=== PATIENT | female | born 1985 | race Caucasian/White ===

== ENCOUNTER 2021-02-02 07:47 | Emergency (ER) | payer OTHER, SELFPAY ==
--- NOTE | 2021-02-02 | ECG_ITS ---
Test Reason : PALPITATIONS Blood Pressure : / mmHG Vent. Rate : 080 BPM Atrial Rate : 080 BPM P-R Int : 110 ms QRS Dur : 082 ms QT Int : 400 ms P-R-T Axes : 068 069 034 degrees QTc Int : 461 ms Sinus rhythm with short [place] Nonspecific T wave abnormality Prolonged QT Abnormal ECG No previous ECGs available Referred By: Generic ED Physician Electronically Signed By:IDANIA OCASIO MD
--- NOTE | ~2021-02-02 | XR_ITS ---
EXAMINATION: XR CHEST CLINICAL INFORMATION: Palpitations. Shortness of breath. Rule out pneumonia. COMPARISON: None TECHNIQUE: 2 views of the chest were obtained. FINDINGS: No significant abnormality is noted involving the heart, lungs, mediastinum, bony thorax or soft tissues. XR/XR chest 2V IMPRESSION: Unremarkable examination.
[2021-02-02 08:10] VITALS: BP 120/78; PULSE 78; RESP 16; TEMP 37.2; O2SAT 96; BMI 27.4
--- NOTE | 2021-02-02 08:27 | ED_ITS ---
HPI - General Adult General Chief complaint: Arrhythmia/Palpitations Stated complaint: palpitations Time Seen by Provider: 02/02/21 08:12 Source: patient Mode of arrival: ambulatory Limitations: no limitations History of Present Illness HPI narrative: 35-year-old female who presents emergency department for evaluati on of palpitations. The patient states that for the past 5 days she feels her heart beating. She states that she has a constant hard heartbeat but does not feel a fast heart rate or skipped beats. She has mild associated shortness of breath and dyspnea on exertion. Chest pain, she has no pleuritic symptoms. She denies pain or swelling in her lower extremities, she has not been on any long trips recently. The patient states the symptoms have been persisting for 5 days, she states that she has anxiety but does not believe that her symptoms are secondary to her anxiety. She denies caffeine use. She states she does smoke marijuana multiple times a day for many years. Related Data Home Medications Medication Instructions Recorded Confirmed citalopram 40 mg tablet 40 mg PO DAILY 10/26/20 10/26/20 lamotrigine 150 mg tablet 75 mg PO BID 10/26/20 10/26/20 lorazepam 0.5 mg tablet mg PO 10/26/20 10/26/20 Previous Rx's Medication Instructions Recorded levothyroxine 50 mcg tablet 50 mcg PO QAM #90 tab 12/15/20 Allergies Allergy/AdvReac Type Severity Reaction Status Date / Time No Known Allergies Allergy Verified 10/26/20 09:13 Review of Systems Review of Systems: Yes all other systems are reviewed and are negative [facility] Past Medical History [facility] Narrative: Patient has a history of hypothyroidism, depression, anxiety, bipolar disorder, PTSD. She denies tobacco and alcohol use. She smokes marijuana multiple times a day for many years. Source: unable to obtain Surgical History No pertinent past surgical history Family History Family History Father Prostate cancer Mother Lung cancer Brother In good health Sister In good health Cervical disc disease Social History Social History Alcohol intake: never Smoking Status: Never smoker Advance Directives: Yes Advance Directives Information Provided: No Advance Directives on File: No Physical Exam Vital Signs: Vital Signs: Last Vital Signs Temp 99 F 02/02/21 08:10 Pulse 78 02/02/21 08:10 Resp 16 02/02/21 08:10 BP 120/78 02/02/21 08:10 Pulse Ox 96 02/02/21 08:10 Body Mass Index 27.4 Const: General: cooperative and healthy appearing Orientation/consciousness: oriented to person and oriented to place Limitations: no limitations HENMT: Head: Yes normal to inspection, Yes normocephalic and Yes atraumatic Ears: external ears normal General nose exam: Normal external nose present Face and sinus: Yes normal facial exam Mouth: Normal oral and palatal mucosa present Throat: Yes posterior oropharynx normal Eyes: Periorbital: periorbital findings normal Eyelids: Yes eyelids normal Conjunctivae: conjunctivae normal Sclerae: sclerae normal Corneas: corneas normal Pupils: Equal, round and reactive pupils present Direct Ophthalmoscopy: normal light reflex Neck: Neck: Yes full ROM, Yes no lymphadenopathy, Yes no meningeal signs, Yes trachea midline and Yes supple Chest: Chest palpation & inspection: normal inspection of the chest and normal palpation of entire chest wall Resp: Effort & Inspection: normal respiratory effort and able to speak in complete sentences Auscultation: clear to auscultation bilaterally Cardio: Rate: regular rate Rhythm: regular rhythm Heart sounds: S1 normal heart sound present, S2 normal heart sound present and no murmurs GI: Inspection: Yes normal to inspection Palpation (GI): Soft to palpation, nontender, no guarding, not rigid and No hepatosplenomegaly present : General: Yes no CVA tenderness Back/Spine/Pelvis: Back: no CVA tenderness Cervical Spine: normal cervical lordosis Thoracic/Lumbar Spine: thoracic and lumbar spine normal to inspection Skin: Lesions: no lesions Rashes: no rashes Wounds: no wounds Neuro: General: oriented to person, oriented to place and no meningeal signs Cranial nerves: Yes CN's II-XII intact bilaterally and Yes Equal, round and reactive pupils present Cognition (Neuro): normal cognition Motor exam (neuro): 5/5 motor strength present throughout Extrem: General: Yes normal to inspection and Yes full ROM Psych: Appearance: well kempt Mental Status: mental status grossly normal Speech and movement: Normal speech and movement present Affect: normal affect Attitude: cooperative Thought process: Normal thought process present Thought content: Normal thought content present Course Course Course Narrative: 35-year-old female who presents emergency department for evaluation of palpitations. She describes the symptoms as a constant, hard, perceivable heartbeat. She has associated dyspnea on exertion and shortness of breath but no pleuritic chest pain. Her examination revealed normal vital signs with no tachycardia and normal O2 saturation. Her exam was otherwise unremarkable. I ordered a CBC, CMP, troponin, D-dimer and chest x-ray. Patient does not want any medications at this time. 1010: Patient's laboratory evaluation was unremarkable with nondetectable troponin, non elevated D-dimer. Chest x-ray was unremarkable. Twelve EKG revealed no acute abnormalities. At this time I do not have a clear etiology for the patient's palpitations and shortness of breath I did discuss this with her. I did discuss the possibility that they may be related to anxiety. The patient was given verbal and printed instructions on palpitations and discharged home. She was advised to return to the emergency department if her symptoms get worse or if she develops any new symptoms that are concerning to her. Medical Decision Making Lab Data Result diagrams: 02/02/21 08:45 02/02/21 08:45 Labs: Lab Results 02/02/21 02/02/21 02/02/21 Range/Units 08:45 08:45 08:45 WBC 8.7 (4.8-10.8) X10*3/uL RBC 4.71 (4.20-5.50) X10*6/uL Hgb 14.1 (12.0-16.0) g/dl Hct 41.7 (37-47) % MCV 88.5 (80-98) fL MCH 29.9 (27.0-33.0) pg MCHC 33.8 (31.0-35.0) g/dl RDW 11.9 (11.0-16.0) % Plt Count 313 (160-400) X10*3/uL MPV 9.7 (9.4-12.3) fL Immature Gran % (Auto) 0.3 (0.0-0.4) % Neut % (Auto) 67.5 (45-73) % Lymph % (Auto) 24.3 (20-40) % [place] % (Auto) 5.6 (2-11) % Eos % (Auto) 1.7 (0-4) % Baso % (Auto) 0.6 (0-2) % Lymph # (Auto) 2.1 (1.2-4.9) X10*3/uL [place] # (Auto) 0.5 (0.1-1.2) X10*3/uL Eos # (Auto) 0.2 (0.0-0.4) X10*3/uL Baso # (Auto) 0.1 (0.0-0.2) X10*3/uL Abs Immat Gran (auto) 0.03 (0.00-0.03) X10*3/uL Absolute Neuts (auto) 5.9 (2.0-8.3) X10*3/uL Absolute Nucleated RBC 0.000 (0.0-0.012) X10*3/uL Nucleated RBC % (auto) 0.0 (0.0-0.2) /100WBC D-Dimer NG/ML Sodium 140 (135-145) mmol/L Potassium 3.9 (3.3-5.1) mmol/L Chloride 108 (96-108) mmol/L Carbon Dioxide 24 (22-29) mmol/L Anion Gap 12 (12-20) BUN 9 (9-16) mg/dL Creatinine 0.68 (0.5-1.4) mg/dL Estim Creat Clear Calc 109.6 Estimated GFR > 60 Random Glucose 95 (60-115) mg/dL Calcium 9.4 (8.4-10.2) mg/dL Total Bilirubin 0.4 (0.0-1.0) mg/dL AST 15 (5-31) U/L ALT 11 (0-31) U/L Alkaline Phosphatase 100 (39-117) U/L Troponin I High Sens < 3.5 (<3.5-17.0) ng/L Total Protein 6.8 (6.5-8.0) g/dL Albumin 4.4 (3.5-5.0) g/dL 02/02/21 Range/Units 08:45 WBC (4.8-10.8) X10*3/uL RBC (4.20-5.50) X10*6/uL Hgb (12.0-16.0) g/dl Hct (37-47) % MCV (80-98) fL MCH (27.0-33.0) pg MCHC (31.0-35.0) g/dl RDW (11.0-16.0) % Plt Count (160-400) X10*3/uL MPV (9.4-12.3) fL Immature Gran % (Auto) (0.0-0.4) % Neut % (Auto) (45-73) % Lymph % (Auto) (20-40) % [place] % (Auto) (2-11) % Eos % (Auto) (0-4) % Baso % (Auto) (0-2) % Lymph # (Auto) (1.2-4.9) X10*3/uL [place] # (Auto) (0.1-1.2) X10*3/uL Eos # (Auto) (0.0-0.4) X10*3/uL Baso # (Auto) (0.0-0.2) X10*3/uL Abs Immat Gran (auto) (0.00-0.03) X10*3/uL Absolute Neuts (auto) (2.0-8.3) X10*3/uL Absolute Nucleated RBC (0.0-0.012) X10*3/uL Nucleated RBC % (auto) (0.0-0.2) /100WBC D-Dimer < 200 NG/ML Sodium (135-145) mmol/L Potassium (3.3-5.1) mmol/L Chloride (96-108) mmol/L Carbon Dioxide (22-29) mmol/L Anion Gap (12-20) BUN (9-16) mg/dL Creatinine (0.5-1.4) mg/dL Estim Creat Clear Calc Estimated GFR Random Glucose (60-115) mg/dL Calcium (8.4-10.2) mg/dL Total Bilirubin (0.0-1.0) mg/dL AST (5-31) U/L ALT (0-31) U/L Alkaline Phosphatase (39-117) U/L Troponin I High Sens (<3.5-17.0) ng/L Total Protein (6.5-8.0) g/dL Albumin (3.5-5.0) g/dL ECG Data Attestation: I personally reviewed and interpreted this ECG as follows: Interpretation: 0800: Normal sinus rhythm with a rate of 80, normal UT, QRS and QTC intervals, inverted T-wave in lead V1 and V3, no ST segment elevation or depression, no PACs or PVCs, no old EKG for comparison. Discharge Plan Discharge Clinical Impression: Palpitation, Acute dyspnea Patient Disposition: Home, Self-Care Instructions: Heart Palpitations (ED) Additional Instructions: Your laboratory evaluation was normal including a nondetectable troponin and non elevated D-dimer. Your chest x-ray was normal with no clear cause for your shortness of breath or shortness of breath when exerting herself. Your 12 EKG was normal. Follow-up with your doctor in 2 days. Please return to the emergency department if your symptoms get worse or if you develop any symptoms that are concerning to you. Prescriptions: No Action levothyroxine 50 mcg tablet 50 mcg PO QAM Qty: 90 RF: 2 lorazepam 0.5 mg tablet PO RF: 0 lamotrigine 150 mg tablet 75 mg PO BID RF: 0 citalopram 40 mg tablet 40 mg PO DAILY RF: 0
[2021-02-02 08:54] LABS: MANUAL DIFF FLAG NO
[2021-02-02 08:56] LABS: Basophils Absolute Auto 0.1 X10*3/uL (0.0-0.2); Basophils Percent Auto 0.6 % (0-2); Eosinophils Absolute Auto 0.2 X10*3/uL (0.0-0.4); Eosinophils Percent Auto 1.7 % (0-4); Hematocrit 41.7 % (37-47); Hemoglobin 14.1 g/dl (12.0-16.0); Imm Gran Abs Auto 0.03 X10*3/uL (0.00-0.03); Imm Gran Pct Auto 0.3 % (0.0-0.4); Lymphocytes Absolute Auto 2.1 X10*3/uL (1.2-4.9); Lymphocytes Percent Auto 24.3 % (20-40); Mean Corpuscular HGB Conc 33.8 g/dl (31.0-35.0); Mean Corpuscular Hemoglobin 29.9 pg (27.0-33.0); Mean Corpuscular Volume 88.5 fL (80-98); Mean Platelet Volume 9.7 fL (9.4-12.3); Monocytes Absolute Auto 0.5 X10*3/uL (0.1-1.2); Monocytes Percent Auto 5.6 % (2-11); Neutrophils Absolute Auto 5.9 X10*3/uL (2.0-8.3); Neutrophils Percent Auto 67.5 % (45-73); Platelet Count 313 X10*3/uL (160-400); Red Blood Count 4.71 X10*6/uL (4.20-5.50); Red Cell Distribution Width 11.9 % (11.0-16.0); White Blood Count 8.7 X10*3/uL (4.8-10.8)
[2021-02-02 09:06] LABS: D Dimer < 200 NG/ML
[2021-02-02 09:26] LABS: Alanine Aminotransferase 11 U/L (0-31); Albumin Level 4.4 g/dL (3.5-5.0); Alkaline Phosphatase 100 U/L (39-117); Anion Gap 12 (12-20); Aspartate Amino Transferase 15 U/L (5-31); Bilirubin Total 0.4 mg/dL (0.0-1.0); Blood Urea Nitrogen 9 mg/dL (9-16); Calcium 9.4 mg/dL (8.4-10.2); Carbon Dioxide 24 mmol/L (22-29); Chloride 108 mmol/L (96-108); Creatinine Clr Calc Pharmacy 109.6; Estimated Glomerular Filt Rate > 60; Glucose Random 95 mg/dL (60-115); Potassium 3.9 mmol/L (3.3-5.1); Sodium 140 mmol/L (135-145); Total Protein 6.8 g/dL (6.5-8.0)
[2021-02-02 09:29] LABS: Troponin-I High Sensitivity < 3.5 ng/L (<3.5-17.0)
== END 2021-02-02 10:27 | disposition home or self-care (01) ==
PROVIDERS: Emergency Provider Emergency Medicine Emergency Medical Services; PCP Physician Assistant
DX: R00.2 Palpitations (principal); R06.00 Dyspnea, unspecified; Z79.899 Other long term (current) drug therapy
CPT/HCPCS: 36415; 71046; 80053; 84484; 85025; 85379; 93005; 99283

== ENCOUNTER 2021-03-10 09:45 | Outpatient (REF) | payer OTHER, SELFPAY ==
[2021-03-17 07:32] LABS: HPV 16 RNA NOT DETECTED (NOT DETECTED); HPV mRNA E6/E7 rflx Detected (Not Detected)
== END 2021-03-10 09:46 | disposition home or self-care (01) ==
LOC: HO.LAB 09:45
PROVIDERS: PCP Physician Assistant; Referring Provider Physician Assistant; Visit Provider Advanced Practice Midwife
DX: Z01.419 Encounter for gynecological examination (general) (routine) without abnormal findings (principal); Z11.51 Encounter for screening for human papillomavirus (HPV)
CPT/HCPCS: 87624; 87625; 88142

== ENCOUNTER 2021-04-05 13:40 | Outpatient (REF) | payer OTHER, SELFPAY | END 2021-04-05 13:41 | disposition home or self-care (01) | LOC: HO.LAB 13:40 | PROVIDERS: PCP Physician Assistant; Visit Provider Obstetrics & Gynecology | DX: R87.613 High grade squamous intraepithelial lesion on cytologic smear of cervix (HGSIL) (principal) | CPT/HCPCS: 57454; 88305; 88342; 88360 ==

== ENCOUNTER → 2021-04-12 15:14 | Outpatient (BNVA) | payer OTHER, SELFPAY | PROVIDERS: PCP Physician Assistant; Visit Provider Obstetrics & Gynecology | DX: R87.613 High grade squamous intraepithelial lesion on cytologic smear of cervix (HGSIL) (principal) | CPT/HCPCS: Q3014 ==

== ENCOUNTER 2021-04-22 06:45 | Day surgery (SDC) | payer OTHER, SELFPAY ==
[2021-04-15 10:41] VITALS: BMI 25.7
[2021-04-22 07:08] VITALS: BP 115/72; PULSE 75; RESP 18; TEMP 36.6; O2SAT 99
[2021-04-22 07:10] LABS: UPreg QC Valid YES; Urine Pregnancy NEGATIVE (NEGATIVE)
[2021-04-22 07:15] VITALS: BMI 25.8
--- NOTE | 2021-04-22 08:20 | P.CONAN_ITS ---
HPI - Anesthesia Eval Consult details Narrative: 35 year old female patient here for LEEP PMFSH Active Problems Active Problems: All Active Problems (Updated 04/15/21 @ 10:37 by Kenyatta Chowdhury) Annual physical exam (Acute) Hypothyroidism (Acute) PTSD (post-traumatic stress disorder) (Acute) MDD (major depressive disorder) (Acute) Bipolar 2 disorder (Acute) Screening for diabetes mellitus (DM) (Acute) Encounter for annual routine gynecological examination (Acute) HSIL (high grade squamous intraepithelial lesion) on Pap smear of cervix (Acute) Past Medical History Medical History Anxiety and depression Family History Family History Father Prostate cancer Mother Lung cancer Brother In good health Sister In good health Cervical disc disease Family history of problems with anesthesia: No Surgical History Surgical History No pertinent past surgical history History of Problems with Anesthesia: No (Nitrous oxide) Social History Social History Alcohol intake: never Patient Tobacco Use Status: Never used Tobacco Use of substances other than those prescribed or required for medical reasons: Yes Substance Use Type: Marijuana Substance Use Frequency: Daily Have you been hit, kicked, punched, or otherwise hurt by someone within the past year? If so, by whom?: No Are you DNR?: No Advance Directives: No Advance Directives Information Provided: No Advance Directives on File: No Patient : No FDLMP: 04/10/2021 : No Poor oral hygiene: No Gender identity: female Meds Allergies Allergy/AdvReac Type Severity Reaction Status Date / Time No Known Allergies Allergy Verified 04/22/21 07:31 Home Medications Medication Instructions Recorded Confirmed Last Taken Type lamotrigine 150 mg tablet 75 mg PO BID 10/26/20 04/15/21 04/22/21 04:00 History lorazepam 0.5 mg tablet 0.5 mg PO DAILY PRN 10/26/20 04/15/21 04/22/21 04:00 History sertraline 25 mg PO DAILY 04/15/21 04/15/21 04/22/21 04:00 History Exam Exam Date and Time: April 22, 2021 0820 Height,Weight and Vital Signs: Height 5 ft 3 in Weight 66.224 kg Last Vital Signs Temp 97.8 F 04/22/21 07:08 Pulse 75 04/22/21 07:08 Resp 18 04/22/21 07:08 BP 115/72 04/22/21 07:08 Pulse Ox 99 04/22/21 07:08 Pertinent Lab Results Pertinent Lab Results: Laboratory Tests 04/22/21 06:55 Urine Test NEGATIVE Airway Mallampati Class: I TM Dist: >3cm Neck ROM: Full Heart: RRR Lungs: CTAB Assessment and Plan Assessment Anesthesia Assessment: Anesthesia Plan Discussed and Chart Reviewed Final Anesthetic Review NPO: Yes ASA Class: II Final Preanesthetic Review: No Changes in Pt Med Stat, Meds/Allgs Chart Revie sun, Consent Obtained/Reviewed and Anes Risks/Benef Reviewed Patient Risk: Low Procedure Risk: Low Assessment/Block/Sedation in SS: Assess/Block/Sedation-SS Anesthetic Plan Anesthetic Plan: GA Disposition: Standard PACU
[2021-04-22] MEDS: Lactated Ringers 1,000 ML 100 ML IVCONT (08:36)
[2021-04-22 09:48] VITALS: BP 98/61; PULSE 58; RESP 16; TEMP 36.2; O2SAT 98
[2021-04-22 09:53] VITALS: BP 100/62; PULSE 62; RESP 17; O2SAT 100
[2021-04-22 10:03] VITALS: BP 108/69; PULSE 79; RESP 17; O2SAT 97
[2021-04-22 10:18] VITALS: BP 108/71; PULSE 66; RESP 17; TEMP 36.4; O2SAT 99
--- NOTE | 2021-04-22 10:20 | W.PM.OPN ---
Operative Note Operative Note Date of Service: 04/22/21 Narrative: Preoperative Diagnosis: HSIL pap smear Postoperative Diagnosis: HSIL pap smear Procedure performed: Loop electrosurgical excision procedure Anesthesia: general Estimated blood loss: 10cc Complications: None Disposition: PACU Ms. Gibson is a 35 year old G0 with recent HSIL pap smear, negative MARGARITA on colposcopic biopsies. She was counseled regarding the options for management, including diagnostic excisional procedure and continued surveillance with repeat pap smear in one year. She has been undergoing colposcopy for the last few years for HPV+ pap smears and requested an excisional procedure. Surgical Risks: The patient was informed of the risks and benefits of the LEEP procedure. Risks included but were not limited to bleeding, infection, injury to the vulva, vagina, or cervix, uterine perforation, and increased risk of labor in a future . The patient expressed understanding of the risks involved, all questions were answered, and the patient consented to the procedure. The patient was taken to the procedure room where a time out was performed to confirm correct patient and correct procedure. General anesthesia was established. The patient was positioned on the operating table in the dorsal lithotomy position with the legs supported using stirrups. All pressure points were padded and a warm blanket was placed to maintain control of core body temperature. The patient was prepped and draped in the usual sterile fashion. The bladder was emptied. A bivalve speculum was inserted into the vagina and the cervix was visualized. Local anesthesia with 1% lidocaine was injected for a total of 10cc circumferentially starting at 12 o'clock. Lugol's iodine was applied to the cervix with non-staining areas being noted circumferentially. The large regular loop electrode was used to excise the cervical sample using the mixed cautery starting at the 9 o'clock position superiorly and extending laterally to 3 o'clock. A second pass was made starting at 12 o'clock and extending inferiorly to 6 o'clock. The gross specimen was removed and sent to pathology. Endocervical curettage was completed using the kevorkian curette and also sent to pathology. Ball electrocautery was used to obtain adequate hemostasis. Monsel's solution was then applied to maintain hemostasis. Good hemostasis was confirmed. The bivalve speculum was removed from the vagina. At the completion of the procedure, all needle, sponge, and instrument counts were noted to be correct x2. Patient tolerated the procedure well and was transferred to the recovery room in stable condition.
== END 2021-04-22 11:05 | disposition home or self-care (01) ==
PROVIDERS: Internal Medicine; PCP Physician Assistant; Visit Provider Obstetrics & Gynecology
PROC: 0UBC7ZZ Excision of Cervix, Via Natural or Artificial Opening (ICD-10-PCS; CPT 57522; principal; 2021-04-22 08:30)
DX: D06.9 Carcinoma in situ of cervix, unspecified (principal); F41.8 Other specified anxiety disorders; F12.90 Cannabis use, unspecified, uncomplicated; Z79.899 Other long term (current) drug therapy
CPT/HCPCS: 57522; 81025; 88305; 88307; J1100; J2250; J2405; J3010

== ENCOUNTER 2021-04-25 08:41 | Outpatient (REF) | payer OTHER, SELFPAY ==
[2021-04-25 09:42] LABS: Hematocrit 43.2 % (37-47); Hemoglobin 14.3 g/dl (12.0-16.0); Mean Corpuscular HGB Conc 33.1 g/dl (31.0-35.0); Mean Corpuscular Hemoglobin 30.2 pg (27.0-33.0); Mean Corpuscular Volume 91.3 fL (80-98); Mean Platelet Volume 10.4 fL (9.4-12.3); Platelet Count 282 X10*3/uL (160-400); Red Blood Count 4.73 X10*6/uL (4.20-5.50); Red Cell Distribution Width 11.9 % (11.0-16.0); White Blood Count 11.2 X10*3/uL (4.8-10.8)
[2021-04-25 10:26] LABS: TSH reflex Free T4 0.58 uIU/mL (0.32-4.0)
[2021-04-25 10:28] LABS: Alanine Aminotransferase 13 U/L (0-31); Albumin Level 4.6 g/dL (3.5-5.0); Alkaline Phosphatase 97 U/L (39-117); Anion Gap 9 (12-20); Aspartate Amino Transferase 16 U/L (5-31); Bilirubin Total 0.4 mg/dL (0.0-1.0); Blood Urea Nitrogen 10 mg/dL (9-16); Calcium 9.7 mg/dL (8.4-10.2); Carbon Dioxide 28 mmol/L (22-29); Chloride 106 mmol/L (96-108); Cholesterol 249 mg/dL; Estimated Glomerular Filt Rate > 60; Glucose Fasting 90 mg/dL (60-99); HDL Cholesterol 50 mg/dL; LDL Cholesterol Calculated 173 mg/dl; Potassium 4.4 mmol/L (3.3-5.1); Sodium 139 mmol/L (135-145); Triglycerides 134 mg/dL
== END 2021-04-25 08:42 | disposition home or self-care (01) ==
LOC: HO.LAB 08:41
PROVIDERS: PCP Physician Assistant; Visit Provider Physician Assistant
DX: Z13.1 Encounter for screening for diabetes mellitus (principal); Z13.220 Encounter for screening for lipoid disorders; I10 Essential (primary) hypertension; E03.9 Hypothyroidism, unspecified
CPT/HCPCS: 36415; 80053; 80061; 84443; 85027

== ENCOUNTER → 2021-05-06 11:35 | Outpatient (BNVA) | payer OTHER, SELFPAY | PROVIDERS: Visit Provider Obstetrics & Gynecology | DX: D06.9 Carcinoma in situ of cervix, unspecified (principal) | CPT/HCPCS: Q3014 ==

== ENCOUNTER 2021-10-26 10:47 | Outpatient (REF) | payer OTHER, SELFPAY ==
[2021-10-26 11:33] LABS: Hematocrit 43.3 % (37.0-47.0); Hemoglobin 14.4 g/dl (12.0-16.0); Mean Corpuscular HGB Conc 33.3 g/dl (31.0-35.0); Mean Corpuscular Hemoglobin 30.3 pg (27.0-33.0); Mean Platelet Volume 10.2 fL (9.4-12.3); Platelet Count 317 X10*3/uL (160-400); Red Blood Count 4.76 X10*6/uL (4.20-5.50); Red Cell Distribution Width 12.2 % (11.0-16.0); White Blood Count 9.7 X10*3/uL (4.8-10.8)
[2021-10-26 12:02] LABS: Alanine Aminotransferase 10 U/L (0-31); Albumin Level 4.5 g/dL (3.5-5.0); Alkaline Phosphatase 99 U/L (39-117); Anion Gap 11 (12-20); Aspartate Amino Transferase 15 U/L (5-31); Bilirubin Total 0.5 mg/dL (0.0-1.0); Blood Urea Nitrogen 7 mg/dL (9-16); Calcium 9.6 mg/dL (8.4-10.2); Carbon Dioxide 24 mmol/L (22-29); Chloride 107 mmol/L (96-108); Cholesterol 256 mg/dL; Estimated Average Glucose 94 mg/dL; Estimated Glomerular Filt Rate > 60; Glucose Fasting 86 mg/dL (60-99); HDL Cholesterol 43 mg/dL; Hemoglobin A1c % 4.9 %; LDL Cholesterol Calculated 188 mg/dl; Potassium 4.6 mmol/L (3.3-5.1); Sodium 137 mmol/L (135-145); Total Protein 7.1 g/dL (6.5-8.0); Triglycerides 126 mg/dL
[2021-10-26 12:24] LABS: TSH reflex Free T4 1.57 uIU/mL (0.32-4.0)
== END 2021-10-26 10:48 | disposition home or self-care (01) ==
LOC: HO.LAB 10:47
PROVIDERS: PCP Physician Assistant; Visit Provider Physician Assistant
DX: E78.9 Disorder of lipoprotein metabolism, unspecified (principal); E03.9 Hypothyroidism, unspecified; Z13.1 Encounter for screening for diabetes mellitus
CPT/HCPCS: 36415; 80053; 80061; 83036; 84443; 85027

== ENCOUNTER 2022-03-13 07:50 | Outpatient (REF) | payer OTHER, SELFPAY ==
[2022-03-13 17:51] LABS: CT PCR NOT DETECTED (Not Detect.); NG PCR NOT DETECTED (Not Detect.)
[2022-03-14 13:15] LABS: BV Int Neg Control Negative (Negative); BV Int Pos Control Positive (Positive)
[2022-03-16 18:31] LABS: HPV mRNA E6/E7 rflx Not Detected (Not Detected)
== END 2022-03-13 07:51 | disposition home or self-care (01) ==
LOC: HO.LAB 07:50
PROVIDERS: PCP Physician Assistant; Visit Provider Advanced Practice Midwife
DX: Z01.411 Encounter for gynecological examination (general) (routine) with abnormal findings (principal); Z11.51 Encounter for screening for human papillomavirus (HPV); R10.2 Pelvic and perineal pain; N92.6 Irregular menstruation, unspecified; D06.9 Carcinoma in situ of cervix, unspecified; Z20.2 Contact with and (suspected) exposure to infections with a predominantly sexual mode of transmission
CPT/HCPCS: 87480; 87491; 87510; 87591; 87624; 87660; 88142

== ENCOUNTER 2022-04-05 11:09 | Outpatient (REF) | payer OTHER, SELFPAY ==
[2022-04-05 11:47] LABS: Hematocrit 43.4 % (37.0-47.0); Hemoglobin 14.5 g/dl (12.0-16.0); Mean Corpuscular HGB Conc 33.4 g/dl (31.0-35.0); Mean Corpuscular Hemoglobin 30.3 pg (27.0-33.0); Mean Corpuscular Volume 90.8 fL (80.0-98.0); Mean Platelet Volume 10.1 fL (9.4-12.3); Platelet Count 333 X10*3/uL (160-400); Red Blood Count 4.78 X10*6/uL (4.20-5.50); Red Cell Distribution Width 11.9 % (11.0-16.0); White Blood Count 12.3 X10*3/uL (4.8-10.8)
[2022-04-05 12:33] LABS: Alanine Aminotransferase 12 U/L (0-31); Albumin Level 4.8 g/dL (3.5-5.0); Alkaline Phosphatase 103 U/L (39-117); Anion Gap 17 (12-20); Aspartate Amino Transferase 18 U/L (5-31); Bilirubin Total 0.4 mg/dL (0.0-1.0); Blood Urea Nitrogen 8 mg/dL (9-16); Calcium 9.8 mg/dL (8.4-10.2); Carbon Dioxide 21 mmol/L (22-29); Chloride 107 mmol/L (96-108); Cholesterol 255 mg/dL; Estimated Glomerular Filt Rate > 60; Glucose Fasting 94 mg/dL (60-99); HDL Cholesterol 54 mg/dL; LDL Cholesterol Calculated 181 mg/dl; Potassium 4.7 mmol/L (3.3-5.1); Sodium 140 mmol/L (135-145); Total Protein 7.5 g/dL (6.5-8.0); Triglycerides 100 mg/dL
[2022-04-05 12:35] LABS: TSH reflex Free T4 1.92 uIU/mL (0.32-4.0)
== END 2022-04-05 11:10 | disposition home or self-care (01) ==
LOC: HO.LAB 11:09
PROVIDERS: Visit Provider Physician Assistant
DX: E03.9 Hypothyroidism, unspecified (principal); I10 Essential (primary) hypertension; E78.9 Disorder of lipoprotein metabolism, unspecified; Z13.1 Encounter for screening for diabetes mellitus; Z13.220 Encounter for screening for lipoid disorders
CPT/HCPCS: 36415; 80053; 80061; 84443; 85027

== ENCOUNTER 2022-11-01 09:27 | Outpatient (REF) | payer OTHER, SELFPAY ==
[2022-11-01 09:44] LABS: Hematocrit 43.3 % (37.0-47.0); Hemoglobin 14.4 g/dl (12.0-16.0); Mean Corpuscular HGB Conc 33.3 g/dl (31.0-35.0); Mean Corpuscular Hemoglobin 30.3 pg (27.0-33.0); Mean Corpuscular Volume 91.2 fL (80.0-98.0); Mean Platelet Volume 9.9 fL (9.4-12.3); Platelet Count 351 X10*3/uL (160-400); Red Blood Count 4.75 X10*6/uL (4.20-5.50); Red Cell Distribution Width 11.9 % (11.0-16.0); White Blood Count 9.5 X10*3/uL (4.8-10.8)
[2022-11-01 10:22] LABS: Alanine Aminotransferase 13 U/L (0-31); Albumin Level 4.8 g/dL (3.5-5.0); Alkaline Phosphatase 93 U/L (39-117); Anion Gap 13 (12-20); Aspartate Amino Transferase 19 U/L (5-31); Bilirubin Total 0.4 mg/dL (0.0-1.0); Blood Urea Nitrogen 8 mg/dL (9-16); Calcium 9.7 mg/dL (8.4-10.2); Carbon Dioxide 27 mmol/L (22-29); Chloride 103 mmol/L (96-108); Cholesterol 276 mg/dL; Estimated Glomerular Filt Rate > 60; Glucose Fasting 90 mg/dL (60-99); HDL Cholesterol 60 mg/dL; LDL Cholesterol Calculated 199 mg/dl; Sodium 139 mmol/L (135-145); Total Protein 7.3 g/dL (6.5-8.0); Triglycerides 87 mg/dL
[2022-11-01 10:31] LABS: TSH reflex Free T4 1.42 uIU/mL (0.32-4.0)
== END 2022-11-01 09:28 | disposition home or self-care (01) ==
LOC: HO.LAB 09:27
PROVIDERS: PCP Physician Assistant; Visit Provider Physician Assistant
DX: E03.9 Hypothyroidism, unspecified (principal); E78.9 Disorder of lipoprotein metabolism, unspecified
CPT/HCPCS: 36415; 80053; 80061; 84443; 85027

== ENCOUNTER 2023-03-15 07:53 | Outpatient (REF) | payer OTHER, SELFPAY ==
[2023-03-22 09:23] LABS: HPV mRNA E6/E7 rflx Not Detected (Not Detected)
== END 2023-03-15 07:54 | disposition home or self-care (01) ==
LOC: HO.LNP 07:53
PROVIDERS: PCP Physician Assistant; Visit Provider Advanced Practice Midwife
DX: Z01.419 Encounter for gynecological examination (general) (routine) without abnormal findings (principal); Z11.51 Encounter for screening for human papillomavirus (HPV); D06.9 Carcinoma in situ of cervix, unspecified
CPT/HCPCS: 87624; 88142

== ENCOUNTER 2023-11-05 07:35 | Outpatient (AMB) | payer OTHER, SELFPAY ==
[2023-11-05 07:49] VITALS: BP 102/70; PULSE 78; O2SAT 99; BMI 25.3
--- NOTE | 2023-11-05 07:49 | MHC.PC.OV ---
Vital Signs 11/05/23 07:49 Height 5 ft 3 in Weight 143 lb BMI 25.3 BP 102/70 Blood Pressure Location Lt brachial Position Sitting Pulse 78 Pulse Source Pulse Oximeter Pulse Oximetry (%) 99 Oxygen Delivery Method Room Air Intake Visit Reasons: Annual Exam Intake Note: Patient here for a physical exam Rn Med Surg Required: No Accompanied by: Self / Same As Patient Allergies No Known Allergies Allergy (Verified 11/05/23 08:04) Medication List - Last Reconciled 11/05/23 by Minor Chadwick PA-C fluoxetine 10 mg PO BID fluticasone propionate 50 mcg/actuation (Flonase Allergy Relief) 1 spray intranasal DAILY 30 days lamotrigine 75 mg PO BID levothyroxine 50 mcg PO QAM simvastatin 5 mg PO BEDTIME tizanidine 2 mg PO BEDTIME 10 days Tobacco use date assessed: 11/05/23 Dental Screening Dental Screen Date: 11/05/23 Did you have a dental visit in the last 12 months?: No Did you have a dental problem in the last 6 months where you did not have access to dental care?: No Was dental information given to patient?: Patient has dentist HPI Annual Exam HPI Details Nata is a 37-year-old female here today for annual physical. ? Patient has a past medical history significant hypothyroidism, hyperlipidemia, mood disorder, PTSD, history of ulcerative colitis. Concern--> reports having some dizziness and presyncopal episode when stretching. Her blood pressure is on the low side and she does understand this. She does admit to not drinking enough fluids specially with electrolytes. She will try to increase her free fluids. .... ? Hypothyroid: Patient reports she has been feeling well has been compliant with her levothyroxine, recent TSH has been stable. .. Hyperlipidemia:? Most recent lipid panel showing elevated total cholesterol and LDL 188.? She does believe for family members do have high cholesterol this may be a familial hypercholesteremia.? She does admit her diet has been poor over the holidays. She will continue to work on lifestyle to reduce high cholesterol foods in her diet.? She reports she does not do any formal exercise. ? .. ? Mood disorder: Does not see a therapist , though does see a med provider.? On FLuoxitine at this time and feels that is effective. ? .. ? COLLECTIONS AND ARCHIVES DIRECTOR: is followed by COLLECTIONS AND ARCHIVES DIRECTOR for annual, had a recent colposcopy with negative results- Has? 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 Vaccines: Needs up-to-date Tdap vaccine , declines flu and COVID vaccines PFSH Medical History Anxiety and depression Surgical History H/O LEEP No pertinent past surgical history Family History Father Prostate cancer Mother Lung cancer Brother In good health HTN (hypertension) Cervical disc disease Sister In good health Cervical disc disease Social History Housing: House Alcohol intake: never Patient Tobacco Use Status: Never used Tobacco e-Cigarette/Vaping Use: Never Used Substance Use Type: Marijuana service: No Current occupational status: disabled Gender identity: Female Cognitive needs: No Hearing needs: No Vision needs: No Female Reproductive History Menstrual Age of Menarche: 12 Questionnaire PHQ-9 Over the last 2 weeks, how often have you been bothered by any of the following problems? 1. Little interest or pleasure in doing things: nearly every day 2. Feeling down, depressed, or hopeless: nearly every day 3. Trouble falling or staying asleep, or sleeping too much: more than half the days 4. Feeling tired or having little energy: nearly every day 5. Poor appetite or overeating: nearly every day 6. Feeling bad about yourself - or that you are a failure or have let yourself or your family down: nearly every day 7. Trouble concentrating on things, such as reading the newspaper or watching television: nearly every day 8. Moving or speaking so slowly that other people could have noticed. Or the opposite - being so fidgety or restless that you have been moving around a lot more than usual: more than half the days 9. Thoughts that you would be better off or of hurting yourself in some way: not at all Total score: 22 Depression Screening Interpretation: Positive Depression Screening Follow-up: Existing condition and In treatment Depression Screening Done: Yes 37550 - PHQ-9 Billing: Yes Source: Developed by Drs. Genaro Boothe, Connie Santiago, Ed Guerrier and colleagues, with an educational glenn from [email or web address]. Thrive Questionnaire Date Thrive assessed: 11/05/23 I am a: Patient What is your living situation today?: I have a steady place to live Within the past 12 months, did the food you bought not last and you didn't have the money to get more?: Never true Within the past 12 months, did you worry whether your food would run out before you got money to buy more?: Never true Do you have trouble paying for medicines?: No Do you have trouble getting transportation to medical appointments?: No Do you have trouble paying your heating and electricity bill?: No Do you have trouble taking care of your child, family member or friend?: No Do you have trouble with day-to-day activities such as bathing, preparing meals, shopping, managing finances, etc.?: No Are you currently unemployed and looking for a job?: No Are you interested in more education?: No Please select the resources that you would like help with: None Currently or been in a relationship where the following occur: no concerns reported AUDIT C Alcohol Use Questionnaire (AUDIT-C) 1. How often do you have a drink containing alcohol?: Never Total Score: 0 TRENT-7 AMB Questionnaire TRENT-7 Date TRENT - 7 assessed: 11/01/22 Feeling nervous, anxious, or on edge: 3 = Nearly every day Not being able to stop or control worryin = Several days Worrying too much about different things: 2 = More than half the days Trouble relaxin = More than half the days Being so restless that it is hard to sit still: 0 = Not at all Becoming easily annoyed or irritable: 3 = Nearly every day Feeling afraid as if something awful might happen: 2 = More than half the days Total TRENT-7 score (0-4 normal; 5-9 mild; 10-14 moderate; 15-21 severe): 13 Source: Developed by Connie Lancaster Kurt Kroenke and colleagues, with an educational glenn from [email or web address]. TRENT-7 Assessment Billing TRENT-7 Assessment Tool: TRENT-7 Assessment 41727 Review of Systems Const Denies body aches, Denies chills, Denies excessive sweating, Denies fatigue, Denies fever(s) and Denies headache(s) Eyes Denies blurry vision ENT Denies dysphagia, Denies vertigo, Denies dizziness, Denies headache(s), Denies hearing loss and Denies tinnitus Card Denies chest pain, Denies chest pain with activity, Denies syncope, Denies irregular heart rhythm and Denies dyspnea Resp Denies chest congestion, Denies cough, Denies hemoptysis, Denies dyspnea and Denies wheezing GI Denies abdominal pain, Denies melena, Denies hematochezia, Denies coffee ground emesis, Denies dysphagia, Denies diarrhea, Denies nausea and Denies vomiting Denies urinary frequency, Denies dysuria, Denies urinary hesitancy and Denies urinary urgency Musc Denies arthralgias, Denies limited range of motion, Denies muscle cramps and Denies muscle weakness Skin/Breast Denies rash and Denies skin ulcer Neuro Denies Abnormal speech present, Denies confusion, Denies vertigo, Denies dizziness, Denies syncope, Denies headache(s), Denies memory loss and Denies seizure-like activity Psych Denies anxiety, Denies confusion, Denies depression, Denies memory loss, Denies panic attacks and Denies paranoia Endo Denies excessive sweating, Denies fatigue, Denies flushing, Denies polydipsia and Denies polyuria Aller/Immun Denies wheezing Physical exam (Primary Care) Vital Signs: Last Vital Signs Pulse 78 11/05/23 07:49 BP 102/70 11/05/23 07:49 Pulse Ox 99 11/05/23 07:49 Oxygen Delivery Method Room Air 11/05/23 07:49 BMI result Body Mass Index 25.3 Tobacco/Smoking Status: Tobacco use Status Tobacco use date assessed 11/05/23 11/05/23 07:55 Patient Tobacco Use Status Never used Tobacco 11/05/23 07:55 e-Cigarette/Vaping Use Never Used 11/05/23 07:55 PHQ-9: PHQ-9 Score PHQ-9: Total score 22 11/05/23 08:24 Depression Screening Interpretation: Positive Depression Screening Follow-up: Existing condition and In treatment Thrive Assessment: Date of Thrive Assessment Date Thrive assessed 11/05/23 11/05/23 07:55 Currently or been in a relationship where the following occur: no concerns reported Const General: cooperative, comfortable, no acute distress, alert and awake; No confusion Orientation/consciousness: oriented to person, oriented to place, patient oriented x3 and No confusion HENMT Head: Yes normocephalic Ears: external ears normal and TM's normal bilaterally Face and sinus: No sinus tenderness Mouth: Normal oral and palatal mucosa present and tongue normal Teeth and gingiva: dentition normal and gingiva normal Throat: Yes posterior oropharynx normal, Yes tonsils normal and Yes uvula midline Eyes Conjunctivae: conjunctivae normal Sclerae: sclerae normal Pupils: Equal, round and reactive pupils present EOM: EOMs intact bilaterally Direct Ophthalmoscopy: No no photophobia Neck Neck: Yes no lymphadenopathy, No tender and Yes no JVD Thyroid: Thyroid normal Carotids: no bruits Chest Chest palpation & inspection: no tenderness Resp Effort & Inspection: normal respiratory effort, no audible wheezes, not labored and no stridor Auscultation: no crackles, no rales, no rhonchi and no wheezes Cardio Jugular venous distension: no JVD Rate: regular rate, not bradycardic and not tachycardic Rhythm: regular rhythm Bruits: no carotid bruits Peripheral pulses: Peripheral pulses 2+ throughout GI Inspection: Yes normal to inspection, No abdominal wall ecchymosis and No visible herniation Palpation (GI): Soft to palpation, nontender, no guarding, not rigid and No hepatosplenomegaly present Auscultation: normoactive bowel sounds General: Yes no CVA tenderness Back/Spine/Pelvis Back: no CVA tenderness and No back tenderness Cervical Spine: cervical ROM normal Thoracic/Lumbar Spine: thoracic and lumbar spine normal to inspection, straight leg raise negative bilaterally, No thoraco-lumbar ROM limited and No lumbar spinal tenderness Skin Lesions: no lesions Rashes: no rashes Wounds: no wounds Neuro General: oriented to person, oriented to place, patient oriented x3, CN's II-XI intact bilaterally and No confusion Cranial nerves: Yes Equal, round and reactive pupils present and Yes Normal accommodation reflex present Cognition (Neuro): normal cognition Speech: No Abnormal speech present Gait exam (Neuro): Normal gait present Motor exam (neuro): 5/5 motor strength present throughout Extrem Right upper extremity: full ROM; no cyanosis Left upper extremity: full ROM; no cyanosis Right lower extremity: no edema Left lower extremity: no edema Psych Appearance: grossly normal Mental Status: mental status grossly normal Affect: normal affect Attitude: cooperative Thought process: Normal thought process present Immunizations Boostrix Tdap 2.5 Lf unit-8 mcg-5 Lf/0.5 mL intramuscular syringe Performing Provider: Minor Chadwick PA-C Performing Location: [facility] Administered by: Danette Panchal CMA on 11/05/23 08:24 Dose Route Admin Location Dispensed Lot Number Expiration Date [employer] [facility] [employer] 0.5 mL IM Left Deltoid 0.5 mL [id number] 02/21/26 [id number] VIS Given Date VIS Provided VIS Publication Date 11/05/23 Single Vaccine 21 Eligibility Eligibility Date Funding Source Not [facility] Eligible 11/05/23 Private Assessment and Plan Assessment & Plan (1) Annual physical exam: Code(s): Z00.00 - Encounter for general adult medical examination without abnormal findings (2) HLD (hyperlipidemia): Code(s): E78.5 - Hyperlipidemia, unspecified Qualifiers: Hyperlipidemia type: mixed hyperlipidemia Qualified Code(s): E78.2 - Mixed hyperlipidemia Plan: Patient continues to have elevated total cholesterol and LDL. Has been somewhat working on lifestyle modifications though over the holidays she reports her diet has been poor. Will continue to follow total cholesterol and LDL and if LDL above 190 will strongly consider statin therapy. Otherwise patient has low cardiovascular risk. (3) Hypothyroidism: Code(s): E03.9 - Hypothyroidism, unspecified Qualifiers: Hypothyroidism type: unspecified Qualified Code(s): E03.9 - Hypothyroidism, unspecified Plan: Patient's most recent TSH has been stable with current dose of levothyroxine at 50 mcg. Continue to follow TSH to assure normal. (4) MDD (major depressive disorder): Code(s): F32.9 - Major depressive disorder, single episode, unspecified Qualifiers: Active/Remission status: currently active Major depression episode severity: moderate Major depression recurrence: recurrent Qualified Code(s): F33.1 - Major depressive disorder, recurrent, moderate Plan: Patient's PHQ-9 score positive for moderate to severe anxiety. She has had a long history of mental health disorder that she has been managing with a mental health therapist and a psychiatrist. She otherwise denies any SI or HI. (5) PTSD (post-traumatic stress disorder): Code(s): F43.10 - Post-traumatic stress disorder, unspecified Plan: Patient's TRENT-7 score positive for moderate to severe anxiety and PTSD which has been existing condition for her. She continues to speak with a mental therapist who manages her mental health medications. (6) Cervical myopathy: Code(s): G72.9 - Myopathy, unspecified Plan: As above patient continues to have neck pain on an intermittent basis.. She reports that tizanidine significantly helps on a p.r.n. basis to reduce her neck pain. Most likely musculoskeletal in advised on using her TENS unit to help relax her muscles. Orders: Orders TDaP Immunization Today Z23 - Encounter for immunization Lipid Panel Today E78.2 - Mixed hyperlipidemia Comprehensive Banks. Panel Fast Today Z13.1 - Encounter for screening for diabetes mellitus TSH reflex Free T4 Today E03.9 - Hypothyroidism, unspecified Medications: Changed From tizanidine 2 mg PO BEDTIME 10 days 10 tabs 1RF muscle spasticity G72.9 - Myopathy, unspecified To tizanidine 2 mg PO BEDTIME 14 days 14 tabs 1RF muscle spasticity G72.9 - Myopathy, unspecified Coding Level of Care Code Est Pt Prev Care [id number]) Diagnoses Annual physical exam Z00.00 Mixed hyperlipidemia E78.2 Hyperlipidemia type: mixed hyperlipidemia Hypothyroidism, unspecified type E03.9 Hypothyroidism type: unspecified Moderate episode of recurrent major depressive disorder F33.1 Active/Remission status: currently active Major depression episode severity: moderate Major depression recurrence: recurrent PTSD (post-traumatic stress disorder) F43.10 Cervical myopathy G72.9 Additional Codes TRENT-7 Assessment Billing - TRENT-7 Assessment Tool: TRENT-7 Assessment 18731 ([id number])
== END 2023-11-05 08:41 | disposition home or self-care (01) ==
PROVIDERS: Visit Provider Physician Assistant
DX: Z00.00 Encounter for general adult medical examination without abnormal findings (principal); F33.1 Major depressive disorder, recurrent, moderate; E78.2 Mixed hyperlipidemia; Z23 Encounter for immunization; E03.9 Hypothyroidism, unspecified; F43.10 Post-traumatic stress disorder, unspecified; G72.9 Myopathy, unspecified
CPT/HCPCS: 90471; 90715; 96127; 99395

== ENCOUNTER 2023-11-05 08:31 | Outpatient (REF) | payer OTHER, SELFPAY | END 2023-11-05 08:32 | disposition home or self-care (01) | LOC: HO.LAB 08:31 | PROVIDERS: PCP Physician Assistant; Visit Provider Physician Assistant | DX: E78.2 Mixed hyperlipidemia (principal); E03.9 Hypothyroidism, unspecified; Z13.1 Encounter for screening for diabetes mellitus | CPT/HCPCS: 36415; 80053; 80061; 84443 ==

== ENCOUNTER 2024-10-10 17:50 | Emergency (ER) | payer OTHER, SELFPAY ==
[2024-10-10 18:01] VITALS: BP 107/71; PULSE 91; RESP 19; TEMP 36.6; O2SAT 99; BMI 24.8
--- NOTE | 2024-10-10 18:03 | ED.GENADULT ---
HPI - General Adult General Chief complaint: Nausea/Vomiting/Diarrhea Stated complaint: Vomiting Time Seen by Provider: 10/11/24 00:24 Source: patient Mode of arrival: ambulatory Limitations: no limitations History of Present Illness ED Provider: HPI narrative: Patient's history of frequent vomiting episodes for last several years with history of bipolar disorder smokes marijuana comes here for similar episode started today afternoon vomited multiple times also had few loose stool patient does complain of epigastric pain after she vomited multiple Related Data Home Medications ?Medication ?Instructions ?Recorded ?Confirmed lamotrigine 150 mg tablet 75 mg PO BID 10/26/20 11/05/23 fluoxetine 10 mg capsule 10 mg PO BID 10/26/21 11/05/23 Previous Rx's ?Medication ?Instructions ?Recorded fluticasone propionate 50 1 spray intranasal DAILY 30 days 01/03/22 mcg/actuation nasal #16 grams spray,suspension (Flonase Allergy Relief) tizanidine 2 mg tablet 2 mg PO BEDTIME muscle spasticity 11/05/23 14 days #14 tabs simvastatin 5 mg tablet 5 mg PO BEDTIME 90 days #90 tabs 08/25/24 levothyroxine 50 mcg tablet 50 mcg PO QAM #90 tabs 09/03/24 ondansetron 4 mg disintegrating 4 mg PO Q6-8H PRN nausea and 10/11/24 tablet vomiting #10 tabs Allergies Allergy/AdvReac Type Severity Reaction Status Date / Time No Known Allergies Allergy Verified 10/10/24 18:03 Review of Systems Review of Systems: Yes all other systems are reviewed and are negative PMFSH Past Medical History Medical History Anxiety and depression Surgical History H/O LEEP No pertinent past surgical history Family History Family History Father Prostate cancer Mother Lung cancer Brother In good health HTN (hypertension) Cervical disc disease Sister In good health Cervical disc disease Social History Social History Housing: House Alcohol intake: never Patient Tobacco Use Status: Never used Tobacco Smoked in Last 30 Days: No e-Cigarette/Vaping Use: Never Used Use of substances other than those prescribed or required for medical reasons: Yes Substance Use Type: Marijuana Substance Use Frequency: Socially Advance Directives: No Advance Directives Information Provided: No Do you have a plan to hurt others: No Plan Patient : No service: No Current occupational status: disabled Gender identity: Female Cognitive needs: No Hearing needs: No Vision needs: No Physical Exam ED Vital Signs: Vital Signs - 24 hr 10/10/24 18:01 10/10/24 21:24 10/11/24 00:08 Temperature 98 F 98 F 97.6 F Pulse Rate 91 100 63 Respiratory Rate 19 19 12 Blood Pressure 107/71 124/77 124/64 Pulse Oximetry 99 98 100 Oxygen Delivery Method Room Air Room Air Room Air 10/11/24 02:00 10/11/24 03:57 Temperature 98.4 F 98.6 F Pulse Rate 86 98 Respiratory Rate 18 12 Blood Pressure 101/59 L 99/62 Pulse Oximetry 99 98 Oxygen Delivery Method Room Air Room Air BMI result Body Mass Index 24.8 Appearance: Alert. Oriented X3. No acute distress. Eyes: No pallor or icterus ENT: Pharynx normal. Oral Mucosa dry Neck: Normal inspection. Neck supple. CVS: Normal heart rate and rhythm. Pulses normal. Respiratory: No respiratory distress. Equal air entry bilateral, no wheezing/rales/rhonchi Abdomen: Soft and nontender. Bowel sounds are present, no mass palpable, no CVA tenderness Skin: Skin warm and dry. Normal skin color. Normal skin turgor. Extremities: No lower extremity edema. No calf tenderness Neuro: Oriented X 3. Course Course Course Narrative: RME, this is a rapid medical exam performed by Gadiel Louis please refer to primary provider for complete H&P- 38-year-old female with past medical history significant for bipolar disorder, PTSD, hypothyroidism, hyperlipidemia presents for evaluation of vomiting. She reports that she has had episodes of severe vomiting about once every year for the last 5 years. Her symptoms started 4 hours ago. She reports associated abdominal pain. Plan for labs, urinalysis, tox screen. We will treat the patient with Zofran Medications Administered Discontinued Medications Generic Name Dose Route Start Last Admin Trade Name Freq PRN Reason Stop Dose Admin Sodium Chloride 1,000 mls @ 999 mls/hr 10/11/24 00:25 10/11/24 02:04 Ns IV 10/11/24 01:25 Infused .Q1H1M ONE Infusion Sodium Chloride 1,000 mls @ 999 mls/hr 10/11/24 02:29 10/11/24 03:53 Ns IV 10/11/24 03:29 Infused .Q1H1M ONE Infusion Lorazepam 1 mg 10/11/24 00:25 10/11/24 00:34 Lorazepam 2 Mg/Ml Vial IVPUSH 10/11/24 00:26 1 mg STAT STA Administration Ondansetron HCl 4 mg 10/10/24 18:02 10/10/24 18:05 Ondansetron Odt 4 Mg Tab.Rapdis TRANSLINGU 10/10/24 18:03 4 mg ONCE ONE Administration Ondansetron HCl 4 mg 10/11/24 00:25 10/11/24 00:34 Ondansetron Hcl 4 Mg/2 Ml Vial IVPUSH 10/11/24 00:26 4 mg ONCE ONE Administration Medical Decision Making Medical Decision Making [facility] Narrative: Patient with frequent? Vomiting syndrome cyclic vomiting also have marijuana use patient has received IV fluids feeling much better taking p.o. fluids lab workup showed leukocytosis which is part of dehydration with similar to that in the past nontoxic appearance will discharge patient home Lab Data [facility] Lab Attestation statement: I reviewed the patient's lab results. 10/10/24 19:44 10/10/24 19:44 Labs: Lab Results 10/10/24 10/11/24 Range/Units 19:44 00:31 WBC 19.8 H (4.8-10.8) X10*3/uL RBC 4.76 (4.20-5.50) X10*6/uL Hgb 14.6 (12.0-16.0) g/dl Hct 41.7 (37.0-47.0) % MCV 87.6 (80.0-98.0) fL MCH 30.7 (27.0-33.0) pg MCHC 35.0 (31.0-35.0) g/dl RDW 11.9 (11.0-16.0) % Plt Count 332 (160-400) X10*3/uL MPV 9.8 (9.4-12.3) fL Immature Gran % (Auto) 0.5 H (0.0-0.4) % Neut % (Auto) 88.9 H (45-73) % Lymph % (Auto) 7.5 L (20-40) % [place] % (Auto) 2.4 (2-11) % Eos % (Auto) 0.4 (0-4) % Baso % (Auto) 0.3 (0-2) % Lymph # (Auto) 1.5 (1.2-4.9) X10*3/uL [place] # (Auto) 0.5 (0.1-1.2) X10*3/uL Eos # (Auto) 0.1 (0.0-0.4) X10*3/uL Baso # (Auto) 0.1 (0.0-0.2) X10*3/uL Abs Immat Gran (auto) 0.10 H (0.00-0.03) X10*3/uL Absolute Neuts (auto) 17.7 H (2.0-8.3) x10*3/uL Absolute Nucleated RBC 0.000 (0.0-0.012) X10*3/uL Nucleated RBC % (auto) 0.0 (0.0-0.2) /100WBC Sodium 137 (135-145) mmol/L Potassium 3.7 (3.3-5.1) mmol/L Chloride 104 (96-108) mmol/L Carbon Dioxide 16 L (22-29) mmol/L Anion Gap 21 H (12-20) BUN 17 H (9-16) mg/dL Creatinine 0.73 (0.5-1.4) mg/dL Estim Creat Clear Calc 94.6 Estimated GFR > 60 Random Glucose 183 H (60-115) mg/dL Calcium 10.1 D (8.4-10.2) mg/dL Magnesium 1.6 (1.6-2.6) mg/dL Total Bilirubin 0.5 (0.0-1.0) mg/dL AST 32 H (5-31) U/L ALT 30 (0-31) U/L Alkaline Phosphatase 98 (39-117) U/L Total Protein 7.8 (6.5-8.0) g/dL Albumin 4.8 (3.5-5.0) g/dL Lipase 12 (8-78) U/L Beta HCG, Quant < 2 mIU/mL Urine Color Yellow Urine Appearance Clear Urine pH 6.5 (5.0-9.0) Ur Specific [place] >= 1.030 H (1.005-1.025) Urine Protein 30 (1+) H (Neg-Trace) mg/dL Urine Glucose (UA) Negative (Negative) mg/dL Urine Ketones >=160 (Negative) mg/dL Urine Blood Negative (Negative) Urine Nitrite Negative (Negative) Ur Leukocyte Esterase Negative (Negative) Urine RBC 0-2 (0-2) /HPF Urine WBC 0-5 (0-5) /HPF Ur Squamous Epith Cells 0-2 (0-2) /HPF Urine Bacteria None Seen (None Seen) Hyaline Casts 0-2 (0-2) /LPF Urine Opiates Screen Not Detected (Not Detect) Ur Buprenorphine Scrn Not Detected (Not Detect) ng/mL Ur Oxycodone Screen Not Detected (Not Detect) ng/mL Urine Methadone Screen Not Detected (Not Detect) ng/mL Urine Fentanyl Screen Not Detected (Not Detect) Ur Barbiturates Screen Not Detected (Not Detect) Ur Phencyclidine Scrn Not Detected (Not Detect) Ur Amphetamines Screen Not Detected (Not Detect) U Benzodiazepines Scrn Not Detected (Not Detect) Urine Cocaine Screen Not Detected (Not Detect) U Marijuana (THC) Screen POSITIVE H (Not Detect) Influenza Type A (PCR) NEGATIVE (Negative) Influenza Type B (PCR) NEGATIVE (Negative) RSV RNA Qual (PCR) NEGATIVE (Negative) SARS-CoV-2 RNA (RT-PCR) NEGATIVE (Negative) Discharge Plan Discharge Clinical Impression: Acute nausea with nonbilious vomiting Patient Disposition: Home, Self-Care Instructions: Acute Nausea and Vomiting (ED) Additional Instructions: Drink plenty of fluids Medicine for nausea as prescribed Follow up with shipping and receiving supervisor Report to the ER if worsening of the system Prescriptions: New ondansetron 4 mg tablet,disintegrating 4 mg PO Q6-8H PRN (Reason: nausea and vomiting) Qty: 10 0RF No Action fluticasone propionate [Flonase Allergy Relief] 50 mcg/actuation spray,suspension 1 spray intranasal DAILY 30 Days Qty: 16 6RF Rx Instructions: administer into each nostril simvastatin 5 mg tablet 5 mg PO BEDTIME 90 Days Qty: 90 2RF levothyroxine 50 mcg tablet 50 mcg PO QAM Qty: 90 1RF lamotrigine 150 mg tablet 75 mg PO BID fluoxetine 10 mg capsule 10 mg PO BID Rx Instructions: administer in the morning and at noon/midday tizanidine 2 mg tablet 2 mg PO BEDTIME 14 Days Qty: 14 1RF Referrals: Katerina Beebe MD [Physician] - 1 week Print Language: British
[2024-10-10] MEDS: Ondansetron ODT 4 MG TAB.RAPDIS TRANSLINGU (18:05)
[2024-10-10 19:48] LABS: MANUAL DIFF FLAG NO
[2024-10-10 19:49] LABS: Basophils Absolute Auto 0.1 X10*3/uL (0.0-0.2); Basophils Percent Auto 0.3 % (0-2); Eosinophils Absolute Auto 0.1 X10*3/uL (0.0-0.4); Eosinophils Percent Auto 0.4 % (0-4); Hematocrit 41.7 % (37.0-47.0); Hemoglobin 14.6 g/dl (12.0-16.0); Imm Gran Pct Auto 0.5 % (0.0-0.4); Lymphocytes Absolute Auto 1.5 X10*3/uL (1.2-4.9); Lymphocytes Percent Auto 7.5 % (20-40); Mean Corpuscular Hemoglobin 30.7 pg (27.0-33.0); Mean Corpuscular Volume 87.6 fL (80.0-98.0); Mean Platelet Volume 9.8 fL (9.4-12.3); Monocytes Absolute Auto 0.5 X10*3/uL (0.1-1.2); Monocytes Percent Auto 2.4 % (2-11); Neutrophils Absolute Auto 17.7 x10*3/uL (2.0-8.3); Neutrophils Percent Auto 88.9 % (45-73); Platelet Count 332 X10*3/uL (160-400); Red Blood Count 4.76 X10*6/uL (4.20-5.50); Red Cell Distribution Width 11.9 % (11.0-16.0); White Blood Count 19.8 X10*3/uL (4.8-10.8)
[2024-10-10 20:12] LABS: Alanine Aminotransferase 30 U/L (0-31); Albumin Level 4.8 g/dL (3.5-5.0); Alkaline Phosphatase 98 U/L (39-117); Anion Gap 21 (12-20); Aspartate Amino Transferase 32 U/L (5-31); Bilirubin Total 0.5 mg/dL (0.0-1.0); Blood Urea Nitrogen 17 mg/dL (9-16); Calcium 10.1 mg/dL (8.4-10.2); Carbon Dioxide 16 mmol/L (22-29); Chloride 104 mmol/L (96-108); Creatinine Clr Calc Pharmacy 94.6; Estimated Glomerular Filt Rate > 60; Glucose Random 183 mg/dL (60-115); Magnesium 1.6 mg/dL (1.6-2.6); Potassium 3.7 mmol/L (3.3-5.1); Sodium 137 mmol/L (135-145); Total Protein 7.8 g/dL (6.5-8.0)
[2024-10-10 20:16] LABS: HCG Quantitative < 2 mIU/mL; Lipase 12 U/L (8-78)
[2024-10-10 21:10] LABS: Influenza A PCR NEGATIVE (Negative); Influenza B PCR NEGATIVE (Negative); Resp Syncy Virus RNA Qual PCR NEGATIVE (Negative); SARS COV2 PCR INHOUSE NEGATIVE (Negative)
[2024-10-10 21:24] VITALS: BP 124/77; PULSE 100; RESP 19; TEMP 36.6; O2SAT 98
[2024-10-11 00:08] VITALS: BP 124/64; PULSE 63; RESP 12; TEMP 36.4; O2SAT 100
[2024-10-11] MEDS: LORazepam 2 MG/ML VIAL 1 MG IVPUSH (00:34)
[2024-10-11] MEDS: 0.9 % Sodium Chloride 1,000 ML 999 ML IV ×2 (00:34→02:31)
[2024-10-11] MEDS: ondansetron HCL 4 MG/2 ML VIAL IVPUSH (00:34)
[2024-10-11 00:37] LABS: Appearance Urine Clear; Color Urine Yellow; Glucose Urine UA Negative (Negative); Leukocyte Esterase Urine Negative (Negative); Nitrite Urine Negative (Negative); PH 6.5 (5.0-9.0); Specific Gravity - Urine >= 1.030 (1.005-1.025); UMIC TRIGGER UACC YES; Urine Blood Negative (Negative); Urine Ketones >=160 mg/dL (Negative); Urine Protein 30 (1+) mg/dL (Neg-Trace)
[2024-10-11 00:45] LABS: Bacteria Urine None Seen (None Seen); Hyaline Casts Urine 0-2 /LPF (0-2); RBC Urine 0-2 /HPF (0-2); Squamous Epithelial Cell Urine 0-2 /HPF (0-2); WBC Urine 0-5 /HPF (0-5)
[2024-10-11 00:52] LABS: Amphetamine Screen Urine Not Detected (Not Detect); Barbiturates, Urine Not Detected (Not Detect); Benzodiazepines Screen Urine Not Detected (Not Detect); Buprenorphine Scr Not Detected (Not Detect); Cannabinoid Screen Urine POSITIVE (Not Detect); Cocaine Screen Urine Not Detected (Not Detect); Fentanyl, urine Not Detected (Not Detect); Methadone Screen, Urine Not Detected (Not Detect); Opiate Screen Urine Not Detected (Not Detect); Oxycodone Screen Urine Not Detected (Not Detect); Phencyclidine Screen Urine Not Detected (Not Detect)
[2024-10-11 02:00] VITALS: BP 101/59; PULSE 86; RESP 18; TEMP 36.9; O2SAT 99
[2024-10-11 03:57] VITALS: BP 99/62; PULSE 98; RESP 12; TEMP 37; O2SAT 98
[2024-10-11 05:06] VITALS: BP 102/65; PULSE 111; RESP 12; TEMP 36.9; O2SAT 97
[2024-10-11 05:18] VITALS: BP 102/65; PULSE 111; RESP 12; TEMP 36.9; O2SAT 97
== END 2024-10-11 05:31 | disposition home or self-care (01) ==
PROVIDERS: Physician Assistant; Emergency Provider Internal Medicine
DX: R11.2 Nausea with vomiting, unspecified (principal); R10.13 Epigastric pain; Z79.899 Other long term (current) drug therapy; Z03.818 Encounter for observation for suspected exposure to other biological agents ruled out
CPT/HCPCS: 0241U; 36415; 80053; 80307; 81001; 83690; 83735; 84702; 85025; 96361; 96374; 96375; 99284; J2060; J2405

== ENCOUNTER 2024-11-10 07:38 | Outpatient (REF) | payer OTHER, SELFPAY ==
[2024-11-10 09:07] LABS: Hematocrit 41.4 % (37.0-47.0); Hemoglobin 13.8 g/dl (12.0-16.0); Mean Corpuscular HGB Conc 33.3 g/dl (31.0-35.0); Mean Corpuscular Hemoglobin 30.6 pg (27.0-33.0); Mean Corpuscular Volume 91.8 fL (80.0-98.0); Mean Platelet Volume 9.9 fL (9.4-12.3); Platelet Count 278 X10*3/uL (160-400); Red Blood Count 4.51 X10*6/uL (4.20-5.50); Red Cell Distribution Width 12.3 % (11.0-16.0); White Blood Count 9.3 X10*3/uL (4.8-10.8)
[2024-11-10 09:49] LABS: Alanine Aminotransferase 34 U/L (0-31); Albumin Level 4.4 g/dL (3.5-5.0); Alkaline Phosphatase 92 U/L (39-117); Anion Gap 8 (12-20); Aspartate Amino Transferase 33 U/L (5-31); Bilirubin Total 0.2 mg/dL (0.0-1.0); Blood Urea Nitrogen 10 mg/dL (9-16); Calcium 9.1 mg/dL (8.4-10.2); Carbon Dioxide 27 mmol/L (22-29); Chloride 109 mmol/L (96-108); Cholesterol 184 mg/dL (<200); Estimated Glomerular Filt Rate > 60; Glucose Fasting 87 mg/dL (60-99); HDL Cholesterol 54 mg/dL (>40); LDL Cholesterol Calculated 111 mg/dL (<100); Potassium 4.1 mmol/L (3.3-5.1); Sodium 140 mmol/L (135-145); Triglycerides 95 mg/dL (<150)
[2024-11-10 10:05] LABS: TSH reflex Free T4 1.37 uIU/mL (0.32-4.0)
== END 2024-11-10 07:39 | disposition home or self-care (01) ==
LOC: HO.LAB 07:38
PROVIDERS: PCP Physician Assistant; Visit Provider Physician Assistant
DX: Z00.00 Encounter for general adult medical examination without abnormal findings (principal); K80.50 Calculus of bile duct without cholangitis or cholecystitis without obstruction; F31.81 Bipolar II disorder; E78.9 Disorder of lipoprotein metabolism, unspecified; E03.9 Hypothyroidism, unspecified
CPT/HCPCS: 36415; 80053; 80061; 84443; 85027; 96127

== ENCOUNTER 2024-11-10 07:38 | Outpatient (AMB) | payer OTHER, SELFPAY ==
--- NOTE | 2024-11-10 08:10 | A.OFFPC_ITS ---
Vital Signs 11/10/24 08:11 Height 5 ft 3 in Weight 148 lb BMI 26.2 BP 110/68 Blood Pressure Location Lt brachial Position Sitting Pulse 52 Pulse Source Pulse Oximeter Pulse Oximetry (%) 100 Oxygen Delivery Method Room Air Intake Visit Reasons: Annual Exam Allergies No Known Allergies Allergy (Verified 11/10/24 08:19) Medication List - Last Reconciled 11/10/24 by Minor Chadwick PA-C fluoxetine 10 mg PO BID fluticasone propionate 50 mcg/actuation (Flonase Allergy Relief) 1 spray intranasal DAILY 30 days lamotrigine 75 mg PO BID levothyroxine 50 mcg PO QAM ondansetron 4 mg PO Q6-8H PRN simvastatin 5 mg PO BEDTIME 90 days tizanidine 2 mg PO BEDTIME 14 days Tobacco use date assessed: 11/10/24 Dental Screening Dental Screen Date: 11/10/24 Did you have a dental visit in the last 12 months?: Yes Did you have a dental problem in the last 6 months where you did not have access to dental care?: No Was dental information given to patient?: Patient has dentist HPI Annual Exam HPI Details Nata is a 38-year-old female here today for annual physical. ? Patient has a past medical history significant hypothyroidism, hyperlipidemia, mood disorder, PTSD, history of ulcerative colitis. Concern--> recently seen at [facility] ER for acute nausea vomiting. She recalls the onset of this pattern a few years ago and notes that the episodes are sporadic. Intermittent nausea and vomiting are sometimes preceded by mild abdominal discomfort. There is a potential association with gallbladder disease, as suggested previously due to episodic symptoms of biliary colic. The patient denies any new symptoms since her last visit. Extensive marijuana use has reduced over time. .... ? Hypothyroid: Patient reports she has been feeling well has been compliant with her levothyroxine, recent TSH has been stable. .. Hyperlipidemia:? Most recent lipid panel showing elevated total cholesterol and LDL 188.? She does believe for family members do have high cholesterol this may be a familial hypercholesteremia.? She does admit her diet has been poor over the holidays. She will continue to work on lifestyle to reduce high cholesterol foods in her diet.? She reports she does not do any formal exercise. ? .. ? Mood disorder: Does not see a therapist , though does see a med provider.? On FLuoxitine at this time and feels that is effective. ? .. ? 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 Vaccines: Up-to-date with tetanus , declines flu and COVID vaccines2 Laboratory Tests 04/05/22 11/01/22 11/05/23 11:21 09:35 08:39 WBC RBC 4.75 Creatinine 0.69 Random Glucose Cholesterol 255 276 LDL Cholesterol, C alc 199 Lipase TSH 1.36 U Marijuana (THC) Screen 10/10/24 10/11/24 19:44 00:31 WBC 19.8 H RBC 4.76 Creatinine 0.73 Random Glucose 183 H Cholesterol LDL Cholesterol, C alc Lipase 12 TSH U Marijuana (THC) Screen POSITIVE H PFSH Medical History Anxiety and depression Surgical History H/O LEEP No pertinent past surgical history Family History Father Prostate cancer Mother Lung cancer Brother In good health HTN (hypertension) Cervical disc disease Sister In good health Cervical disc disease Social History Housing: House Alcohol intake: never Patient Tobacco Use Status: Never used Tobacco e-Cigarette/Vaping Use: Never Used Substance Use Type: Marijuana service: No Current occupational status: disabled Gender identity: Female Cognitive needs: No Hearing needs: No Vision needs: No Female Reproductive History Menstrual Age of Menarche: 12 Questionnaire PHQ-9 Over the last 2 weeks, how often have you been bothered by any of the following problems? 1. Little interest or pleasure in doing things: nearly every day 2. Feeling down, depressed, or hopeless: nearly every day 3. Trouble falling or staying asleep, or sleeping too much: more than half the days 4. Feeling tired or having little energy: nearly every day 5. Poor appetite or overeating: several days 6. Feeling bad about yourself - or that you are a failure or have let yourself or your family down: nearly every day 7. Trouble concentrating on things, such as reading the newspaper or watching television: nearly every day 8. Moving or speaking so slowly that other people could have noticed. Or the opposite - being so fidgety or restless that you have been moving around a lot more than usual: not at all 9. Thoughts that you would be better off or of hurting yourself in some way: several days Total score: 19 Depression Screening Interpretation: Positive Depression Screening Follow-up: Existing condition and In treatment Depression Screening Done: Yes 39751 - PHQ-9 Billing: Yes Source: Developed by Drs. Genaro Boothe, Connie Santiago, Ed Guerrier and colleagues, with an educational glenn from [employer]. Thrive Questionnaire Date Thrive assessed: 11/03/24 I am a: Patient What is your living situation today?: I have a steady place to live Within the past 12 months, did the food you bought not last and you didn't have the money to get more?: Sometimes True Within the past 12 months, did you worry whether your food would run out before you got money to buy more?: Sometimes True Do you have trouble paying for medicines?: No Do you have trouble getting transportation to medical appointments?: Yes Do you have trouble paying your heating and electricity bill?: Yes Do you have trouble taking care of your child, family member or friend?: No Do you have trouble with day-to-day activities such as bathing, preparing meals, shopping, managing finances, etc.?: Yes Are you currently unemployed and looking for a job?: I choose not to answer this question Are you interested in more education?: I choose not to answer this question Please select the resources that you would like help with: Utilities Currently or been in a relationship where the following occur: No concerns reported THRIVE Score: 4 AUDIT C Alcohol Use Questionnaire (AUDIT-C) 1. How often do you have a drink containing alcohol?: Never 2. How many drinks containing alcohol do you have on a typical day when you are drinking?: 3 or 4 3. How often do you have six or more drinks on one occasion?: Less than monthly Total Score: 2 TRENT-7 AMB Questionnaire TRENT-7 Date TRENT - 7 assessed: 11/10/24 Feeling nervous, anxious, or on edge: 2 = More than half the days Not being able to stop or control worryin = More than half the days Worrying too much about different things: 2 = More than half the days Trouble relaxin = More than half the days Being so restless that it is hard to sit still: 0 = Not at all Becoming easily annoyed or irritable: 1 = Several days Feeling afraid as if something awful might happen: 2 = More than half the days Total TRENT-7 score (0-4 normal; 5-9 mild; 10-14 moderate; 15-21 severe): 11 Source: Developed by Drs. Genaro Boothe, Connie Santiago, Ed Guerrier and colleagues, with an educational glenn from [employer]. TRENT-7 Assessment Billing TRENT-7 Assessment Tool: TRENT-7 Assessment 33350 Review of Systems Const Denies body aches, Denies chills, Denies excessive sweating, Denies fatigue, Denies fever(s) and Denies headache(s) Eyes Denies blurry vision ENT Denies dysphagia, Denies vertigo, Denies dizziness, Denies headache(s), Denies hearing loss and Denies tinnitus Card Denies chest pain, Denies chest pain with activity, Denies syncope, Denies irregular heart rhythm and Denies dyspnea Resp Denies chest congestion, Denies cough, Denies hemoptysis, Denies dyspnea and Denies wheezing GI Details: RANDOM INTERMITTENT ABDOMINAL PAIN VOMITING Denies abdominal pain, Denies melena, Denies hematochezia, Denies coffee ground emesis, Denies dysphagia, Denies diarrhea, Denies nausea and Reports vomiting Denies urinary frequency, Denies dysuria, Denies urinary hesitancy and Denies urinary urgency Musc Denies arthralgias, Denies limited range of motion, Denies muscle cramps and Denies muscle weakness Skin/Breast Denies rash and Denies skin ulcer Neuro Denies Abnormal speech present, Denies confusion, Denies vertigo, Denies dizziness, Denies syncope, Denies headache(s), Denies memory loss and Denies seizure-like activity Psych Denies anxiety, Denies confusion, Denies depression, Denies memory loss, Denies panic attacks and Denies paranoia Endo Denies excessive sweating, Denies fatigue, Denies flushing, Denies polydipsia and Denies polyuria Aller/Immun Denies wheezing Physical exam (Primary Care) Vital Signs: Last Vital Signs Pulse 52 11/10/24 08:11 BP 110/68 11/10/24 08:11 Pulse Ox 100 11/10/24 08:11 Oxygen Delivery Method Room Air 11/10/24 08:11 BMI result Body Mass Index 26.2 Tobacco/Smoking Status: Tobacco use Status Tobacco use date assessed 11/10/24 11/10/24 08:14 Patient Tobacco Use Status Never used Tobacco 11/10/24 08:14 e-Cigarette/Vaping Use Never Used 11/10/24 08:14 PHQ-9: PHQ-9 Score PHQ-9: Total score 19 11/10/24 08:22 Depression Screening Interpretation: Positive Depression Screening Follow-up: Existing condition and In treatment Thrive Assessment: Date of Thrive Assessment Date Thrive assessed 11/03/24 11/10/24 08:14 Currently or been in a relationship where the following occur: No concerns reported Const General: cooperative, comfortable, no acute distress, alert and awake; No confusion Orientation/consciousness: oriented to person, oriented to place, patient oriented x3 and No confusion HENMT Head: Yes normocephalic Ears: external ears normal and TM's normal bilaterally Face and sinus: No sinus tenderness Mouth: Normal oral and palatal mucosa present and tongue normal Teeth and gingiva: dentition normal and gingiva normal Throat: Yes posterior oropharynx normal, Yes tonsils normal and Yes uvula midline Eyes Conjunctivae: conjunctivae normal Sclerae: sclerae normal Pupils: Equal, round and reactive pupils present EOM: EOMs intact bilaterally Direct Ophthalmoscopy: No no photophobia Neck Neck: Yes no lymphadenopathy, No tender and Yes no JVD Thyroid: Thyroid normal Carotids: no bruits Chest Chest palpation & inspection: no tenderness Resp Effort & Inspection: normal respiratory effort, no audible wheezes, not labored and no stridor Auscultation: no crackles, no rales, no rhonchi and no wheezes Cardio Jugular venous distension: no JVD Rate: regular rate, not bradycardic and not tachycardic Rhythm: regular rhythm Bruits: no carotid bruits Peripheral pulses: Peripheral pulses 2+ throughout GI Inspection: Yes normal to inspection, No abdominal wall ecchymosis and No visible herniation Palpation (GI): Soft to palpation, nontender, no guarding, not rigid and No hepatosplenomegaly present Auscultation: normoactive bowel sounds General: Yes no CVA tenderness Back/Spine/Pelvis Back: no CVA tenderness and No back tenderness Cervical Spine: cervical ROM normal Thoracic/Lumbar Spine: thoracic and lumbar spine normal to inspection, straight leg raise negative bilaterally, No thoraco-lumbar ROM limited and No lumbar spinal tenderness Skin Lesions: no lesions Rashes: no rashes Wounds: no wounds Neuro General: oriented to person, oriented to place, patient oriented x3, CN's II-XI intact bilaterally and No confusion Cranial nerves: Yes Equal, round and reactive pupils present and Yes Normal accommodation reflex present Cognition (Neuro): normal cognition Speech: No Abnormal speech present Gait exam (Neuro): Normal gait present Motor exam (neuro): 5/5 motor strength present throughout Extrem Right upper extremity: full ROM; no cyanosis Left upper extremity: full ROM; no cyanosis Right lower extremity: no edema Left lower extremity: no edema Psych Appearance: grossly normal Mental Status: mental status grossly normal Affect: normal affect Attitude: cooperative Thought process: Normal thought process present Coding Level of Care Code Est Pt Prev Care 18-39y(05134) Diagnoses Annual physical exam Z00. Biliary colic K80.50 Bipolar 2 disorder F31.81 Borderline high cholesterol E78.9 Hypothyroidism, unspecified type E03.9 Hypothyroidism type: unspecified Additional Codes PHQ-9 - 37902 - PHQ-9 Billing: Yes ([id number]) TRENT-7 Assessment Billing - TRENT-7 Assessment Tool: TRENT-7 Assessment [id number] ([id number]) Assessment & Plan Assessment & Plan (1) Annual physical exam: Code(s): Z00.00 - Encounter for general adult medical examination without abnormal findings Category: Medical Plan: As per HPI (2) Biliary colic: Code(s): K80.50 - Calculus of bile duct without cholangitis or cholecystitis without obstruction Category: Medical Plan: I discussed the likelihood of gallbladder-related issues and advised obtaining an ultrasound to identify any gallbladder disease due to the symptomatic episodes described. We talked about the potential risks of gallstones and possible surgical intervention if confirmed. For the patient's ongoing nausea and vomiting, I recommended continuing ondansetron during acute episodes. (3) Bipolar 2 disorder: Code(s): F31.81 - Bipolar II disorder Category: Medical Plan: Patient's PHQ-9 and trent 7 score positive for mental health disorder which have been existing conditions for her. She is to stable due to her mental health. Patient continues on mental health medication and mood stabilize from lamotrigine. She continues to see a psychiatrist and feels her mental health has been stable. (4) Borderline high cholesterol: Code(s): E78.9 - Disorder of lipoprotein metabolism, unspecified Category: Medical Plan: Patient has a history of borderline high cholesterol. She continues on simvastatin with decent affect. Will recheck fasting labs to ensure lipid panel stable. Goal LDL is to remain below 160 (5) Hypothyroidism: Code(s): E03.9 - Hypothyroidism, unspecified Category: Medical Qualifiers: Hypothyroidism type: unspecified Qualified Code(s): E03.9 - Hypothyroidism, unspecified Plan: Patient's most recent TSH has been stable. She continues on levothyroxine 75 mcg with good effect. Will continue to follow TSH to assure normal. Orders: Orders Comprehensive [place]. Panel Fast 11/10/24 E78.9 - Disorder of lipoprotein metabolism, unspecified Complete Blood Count no Diff 11/10/24 E78.9 - Disorder of lipoprotein metabolism, unspecified TSH reflex Free T4 11/10/24 E03.9 - Hypothyroidism, unspecified Lipid Panel 11/10/24 E78.9 - Disorder of lipoprotein metabolism, unspecified US abdomen complete 11/10/24 K80.50 - Calculus of bile duct without cholangitis or cholecystitis without obstruction Medications: Refilled tizanidine 2 mg PO BEDTIME 14 tabs 1RF muscle spasticity 14 days G72.9 - Myopathy, unspecified ondansetron 4 mg PO Q6-8H PRN 10 tabs 0RF nausea and vomiting
[2024-11-10 08:11] VITALS: BP 110/68; PULSE 52; O2SAT 100; BMI 26.2
== END 2024-11-10 08:35 | disposition home or self-care (01) ==
PROVIDERS: PCP Physician Assistant; Visit Provider Physician Assistant
DX: Z00.00 Encounter for general adult medical examination without abnormal findings (principal); K80.50 Calculus of bile duct without cholangitis or cholecystitis without obstruction; F31.81 Bipolar II disorder; E78.9 Disorder of lipoprotein metabolism, unspecified; E03.9 Hypothyroidism, unspecified

== ENCOUNTER 2024-12-03 08:51 | Outpatient (REF) | payer OTHER, SELFPAY ==
--- NOTE | ~2024-12-03 | US_ITS ---
CLINICAL HISTORY: K80.50 - Calculus of bile duct without cholangitis or cholecystitis with... Limited abdominal ultrasound Comparison: None Findings: The liver is normal normal in echogenicity without focal lesions. The common bile duct is normal in diameter, measuring 0.5 cm. No cholelithiasis. No wall thickening or pericholecystic fluid. Negative sonographic Bell sign. The right kidney is normal in echogenicity and size, measuring 11.0 cm in length. Unremarkable limited evaluation of the pancreas. Impression: Negative for acute cholecystitis or choledocholithiasis. This document has been electronically signed by: Sherri Turner MD on 12/03/2024 17:58:47
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
--- OUTSIDE RECORDS SUMMARY | 2024-12-03 08:56 | XMS_ITS | Encounter Summary ---
Author Organization [facility] Address [address] [place] [address] Care Team Providers Care Director Of Analytics Name Role Phone Charmaine Naidu DO Primary Care Pro vider Unavailable Sabrina Maria MD Primary Care Provider Un available Encounter Details Date Type Department Care Team Description 03/12/2015 [facility] Medical Records [address] [place] [address] Social History Tobacco Use Types Packs/Day Years Used Date Smoking Tobacco: Never Smokeless Tobacco: Never Alcohol Use Standard Drinks/Week Comments Yes 0 (1 standard drink = 0.6 oz pur e alcohol) occ Sex Assigned at Date Recorded Not on file documented as of this encounter Plan of Treatment Not on file documented as of this encounter Visit Diagnoses Not on filedocumented in this encounter Care Teams Director Of Analytics Relationship Specialty Start Date End Date Charmaine Naidu DO PCP - General Internal Medicine 12/25/13 02/07/17 Sabrina Maria MD PCP - General Internal Medicine 02/08/17 documented as of this encounter
--- OUTSIDE RECORDS SUMMARY | 2024-12-03 08:56 | XMS_ITS | Encounter Summary ---
Author Organization [facility] Address [address] [place] [address] Care Team Providers Care Business Analysis Professional Name Role Phone Sabrina Maria MD Primary Care Provider Un available Encounter Details Date Type Department Care Team Description 02/18/2017 Release of Information Medical Records [address] [place] [id number] Abstract, Provider Social History Tobacco Use Types Packs/Day Years [...] on filedocumented in this encounter Care Teams Business Analysis Professional Relationship Specialty Start Date End Date Sabrina Maria MD PCP - General Internal Medicine 02/08/17 documented as of this encounter
--- OUTSIDE RECORDS SUMMARY | 2024-12-03 08:56 | XMS_ITS | Encounter Summary ---
Author Organization [facility] Address [address] [place] [address] Care Team Providers Care Facility Attendant Name Role Phone Charmaine Naidu DO Primary Care Pro vider Unavailable Sabrina Maria MD Primary Care Provider Un available Encounter Details Date Type Department Care Team Description 08/11/2016 Release of Information Medical Records [address] [place] [id number] Abstract, Provider Social History Tobacco Use Types [...] on filedocumented in this encounter Care Teams Facility Attendant Relationship Specialty Start Date End Date Charmaine Naidu DO PCP - General Internal Medicine 12/25/13 02/07/17 Sabrina Maria MD PCP - General Internal Medicine 02/08/17 documented as of this encounter
--- OUTSIDE RECORDS SUMMARY | 2024-12-03 08:56 | XMS_ITS | Encounter Summary ---
Author Organization [facility] Address [address] [place] [address] Care Team Providers Care Railroad Signal And Switch Operator Name Role Phone Charmaine Naidu DO Primary Care Pro vider Unavailable Sabrina Maria MD Primary Care Provider Un available Reason for Visit * Reason Onset Date Comments REFERRAL 02/12/2014 Encounter Details Date Type Department Care Team Description 02/12/2014 Telephone [facility]-[address] [address] Jose Del Rosario, OD REFERRAL Social History Tobacco Use Types Packs/Day Years Used Date Smoking Tobacco: Never Smokeless Tobacco: Never Alcohol Use Standard Drinks/Week Comments Yes 0 (1 standard drink = 0.6 oz pur e alcohol) occ Sex Assigned at Date Recorded Not on file documented as of this encounter Miscellaneous Notes * Telephone Encounter - Deyanira Bower - 02/12/2014 11:02 AM EDT This is just an FYI: This patient was referred to the Eye Department for routine eye exam after being seen on 01/22/14.Since then the patient has failed to respond to our phone calls and an unable to reach letter that was sent to the patient's home. Therefore the patient will be removed from our report. documented in this encounter Plan of Treatment Not on file documented as of this encounter Visit Diagnoses Not on filedocumented in this encounter Care Teams Railroad Signal And Switch Operator Relationship Specialty Start Date End Date Charmaine Naidu DO PCP - General Internal Medicine 12/25/13 02/07/17 Sabrina Maria MD PCP - General Internal Medicine 02/08/17 documented as of this encounter
--- OUTSIDE RECORDS SUMMARY | 2024-12-03 08:56 | XMS_ITS | Encounter Summary ---
Author Organization [facility] Address [address] [place] [address] Care Team Providers Care Helper/Driver Name Role Phone Charmaine Naidu DO Primary Care Pro vider Unavailable Sabrina Maria MD Primary Care Provider Un available Encounter Details Date Type Department Care Team Description 01/22/2014 Orders Only Adult Medicine [address] [address] Charmaine Naidu DO Pyuria (Primary Dx) Social History Tobacco Use Types Packs/Day Years Used Date Smoking Tobacco: Never Smokeless Tobacco: Never Alcohol Use Standard Drinks/Week Comments Yes 0 (1 standard drink = 0.6 oz pur e alcohol) occ Sex Assigned at Date Recorded Not on file documented as of this encounter Plan of Treatment Not on file documented as of this encounter Results * URINE, CULTURE (01/22/2014 2:39 PM EDT) Urine (Urine) 01/22/2014 2:3 9 PM EDT 01/22/2014 2:40 PM EDT Narrative [facility] - 01/23/2014 2:00 PM EDT No growth Charmaine Lopez DO LAB [facility] documented in this encounter Visit Diagnoses Diagnosis Pyuria- Primary Other nonspecific finding on examination of urine Pyuria Other nonspecific finding on examination of urine documented in this encounter Care Teams Helper/Driver Relationship Specialty Start Date End Date Charmaine Naidu DO PCP - General Internal Medicine 12/25/13 02/07/17 Sabrina Maria MD PCP - General Internal Medicine 02/08/17 documented as of this encounter
--- OUTSIDE RECORDS SUMMARY | 2024-12-03 08:56 | XMS_ITS | Encounter Summary ---
Author Organization [facility] Address [address] [place] [address] Care Team Providers Care Paper Machine Supervisor Name Role Phone Charmaine Naidu DO Primary Care Pro vider Unavailable Sabirna Maria MD Primary Care Provider Un available Encounter Details Date Type Department Care Team Description 03/12/2015 [facility] Medical Records [address] [place] [address] Social History Tobacco Use Types Packs/Day Years [...] on filedocumented in this encounter Care Teams Paper Machine Supervisor Relationship Specialty Start Date End Date Charmaine Naidu DO PCP - General Internal Medicine 12/25/13 02/07/17 Sabrina Maria MD PCP - General Internal Medicine 02/08/17 documented as of this encounter
== END 2024-12-03 08:52 | disposition home or self-care (01) ==
LOC: HO.HMGCX 08:51
PROVIDERS: PCP Physician Assistant; Visit Provider Physician Assistant
DX: K80.50 Calculus of bile duct without cholangitis or cholecystitis without obstruction (principal)
CPT/HCPCS: 76705

== ENCOUNTER → 2024-12-03 09:00 | Outpatient (BNV) | payer OTHER, SELFPAY | PROVIDERS: PCP Physician Assistant; Visit Provider Radiology Diagnostic Radiology | DX: K80.50 Calculus of bile duct without cholangitis or cholecystitis without obstruction (principal) | CPT/HCPCS: 76705 ==

== ENCOUNTER 2025-01-27 10:38 | Outpatient (AMB) | payer OTHER, SELFPAY ==
--- NOTE | 2025-01-27 10:56 | MHC.OFFWIV ---
Intake Vital Signs 01/27/25 10:58 BP 130/86 Blood Pressure Location Rt brachial Position Sitting Pulse 94 Pulse Source Pulse Oximeter Pulse Oximetry (%) 98 Oxygen Delivery Method Room Air Intake Visit Reasons: EP injury on LT hand Intake Note: Patient here for left hand pain after she fell over her dog. Patient Tobacco Use Status: Never used Tobacco Allergies No Known Allergies Allergy (Verified 01/27/25 11:03) Medication List - Last Reconciled 01/27/25 by BRUNA Jimenez- fluoxetine 10 mg PO BID fluticasone propionate 50 mcg/actuation (Flonase Allergy Relief) 1 spray intranasal DAILY 30 days lamotrigine 75 mg PO BID levothyroxine 50 mcg PO QAM ondansetron 4 mg PO Q6-8H PRN simvastatin 5 mg PO BEDTIME 90 days tizanidine 2 mg PO BEDTIME 14 days Do you need a note to return to daycare/school/sports/work: No HPI HPI Comments History of Present Illness Details History - The patient is a 39-year-old female presenting with left hand pain following a fall over a dog. - The event occurred today, with the patient falling at around 9:20 AM. - She landed on her left dominant hand and reports significant shooting pain and a clicking sensation. - No numbness or tingling was reported. - Patient has not taken any pain medication before the examination. - No known allergies or renal issues. Results - X-ray: Confirmed fracture of the fourth metacarpal bone on the left hand. See below Discussion Notes I discussed with the patient that the X-ray confirmed a fracture of the fourth metacarpal bone. We talked about the management of this fracture, and I explained the need for immobilization to promote healing. I advised using a splint that will support her pinky and ring fingers and cover her forearm. I placed a referral for a stat orthopedic consultation to [facility] Orthopedic doctors for further evaluation and treatment. We discussed that surgery is not necessary at this time, but that close monitoring is important to ensure proper alignment and healing. I provided her with information about pain management, specifically with the use of diclofenac twice daily, and advised Tylenol for breakthrough pain, avoiding ibuprofen and Aleve due to the potential for gastric upset. I explained that the stat referral has been processed, and she should expect a call for scheduling an appointment with the specialist. Should the pain persist or any concerns arise, she should seek medical attention promptly. Assessment and Plan 1. Fracture of the fourth metacarpal bone: The patient has a confirmed fracture of the fourth metacarpal bone based on X-ray imaging. Management will involve immobilization with a splint to stabilize the fracture site, coupled with analgesic control using diclofenac and acetaminophen. A referral to orthopedic specialists has been made to ensure comprehensive follow-up care, and surgical intervention is currently not indicated. Monitoring through imaging will ensure proper healing alignment Ibuprofen 800mg po was admin x 1 at time of visit [place] Text to [facility] ortho PA verification specialist sent w/ heads up. Patient Instructions - Wear the splint as advised to immobilize your hand and support the healing process. - Take diclofenac twice daily, preferably with food, to help manage inflammation and pain. - You may take acetaminophen if you experience any additional breakthrough pain. - Avoid using ibuprofen or Aleve as they may cause stomach upset. - Expect a call for your orthopedic consultation soon; attend your follow-up appointment. - Monitor for any increased pain, swelling, or changes in sensation and seek medical attention if these occur. Consent Patient was informed and verbally consented to the use of an ambient scribe for clinic note documentation during this visit. Total time spent caring for the patient today was 40 minutes. This includes time spent before the visit reviewing the chart, time spent during the visit, and time spent after the visit on documentation, reviewing laboratory results, diagnostic imaging, medications, performing a medically necessary evaluation, counseling on diagnoses, care coordination, ordering appropriate tests, ordering appropriate medications, review of tests performed by other providers, reporting test results with the patient, communication with other healthcare providers. [facility] Medical History Anxiety and depression Surgical History H/O LEEP No pertinent past surgical history Family History Father Prostate cancer Mother Lung cancer Brother In good health HTN (hypertension) Cervical disc disease Sister In good health Cervical disc disease Social History Housing: House Alcohol intake: never Patient Tobacco Use Status: Never used Tobacco e-Cigarette/Vaping Use: Never Used Substance Use Type: Marijuana service: No Current occupational status: disabled Gender identity: Female Cognitive needs: No Hearing needs: No Vision needs: No Female Reproductive History Menstrual Age of Menarche: 12 Physical Exam Vital Signs: Last Vital Signs Pulse 94 01/27/25 10:58 BP 130/86 01/27/25 10:58 Pulse Ox 98 01/27/25 10:58 Oxygen Delivery Method Room Air 01/27/25 10:58 Office Meds ibuprofen 200 mg tablet Performing Provider: PAWAN Jimenez Performing Location: [facility] Walk-In Care[facility] Administered by: PAWAN Jimenez on 01/27/25 11:13 Dose Route Admin Location Dispensed Lot Number Expiration Date [facility] Management [employer] 800 mg PO office 800 mg [id number] 05/29/25 8312-2869-26 [employer] Results Reviewed Results Reviewed: Assessment & Plan Assessment & Plan (1) Fracture of metacarpal of left hand, closed: Code(s): S62.309A - Unspecified fracture of unspecified metacarpal bone, initial encounter for closed fracture Qualifiers: Encounter type: initial encounter Metacarpal bone: fourth Metacarpal location: unspecified portion of metacarpal (2) Fall: Code(s): W19.XXXA - Unspecified fall, initial encounter Qualifiers: Encounter type: initial encounter Qualified Code(s): W19.XXXA - Unspecified fall, initial encounter (3) Left hand pain: Code(s): M79.642 - Pain in left hand (4) Left wrist pain: Code(s): M25.532 - Pain in left wrist Plan: . (5) Acute pain due to trauma: Code(s): G89.11 - Acute pain due to trauma Plan . Orders: Orders XR wrist LT min 3V Today M25.532 - Pain in left wrist, M79.642 - Pain in left hand, W19.XXXA - Unspecified fall, initial encounter AMB Ibuprofen Adult Dose Today M25.532 - Pain in left wrist, M79.642 - Pain in left hand, W19.XXXA - Unspecified fall, initial encounter Referrals Orthopedics Referral G89.11 - Acute pain due to trauma, M25.532 - Pain in left wrist, M79.642 - Pain in left hand, S62.309A - Unspecified fracture of unspecified metacarpal bone, initial encounter for closed fracture, W19.XXXA - Unspecified fall, initial encounter Medications: New diclofenac sodium 50 mg PO Q12H PRN 60 tabs 0RF pain Coding Level of Care Code Est Pt Level 5 (90664) Diagnoses Fracture of metacarpal of left hand, closed S62.309A Encounter type: initial encounter Metacarpal bone: fourth Metacarpal location: unspecified portion of metacarpal Fall, initial encounter W19.XXXA Encounter type: initial encounter Left hand pain M79.642 Left wrist pain M25.532 Acute pain due to trauma G89.11
[2025-01-27 10:58] VITALS: BP 130/86; PULSE 94; O2SAT 98
== END 2025-01-27 12:35 | disposition home or self-care (01) ==
PROVIDERS: PCP Physician Assistant; Visit Provider Nurse Practitioner Family
DX: S62.309A Unspecified fracture of unspecified metacarpal bone, initial encounter for closed fracture (principal); W19.XXXA Unspecified fall, initial encounter; M79.642 Pain in left hand; M25.532 Pain in left wrist; G89.11 Acute pain due to trauma

== ENCOUNTER 2025-01-27 10:38 | Outpatient (REF) | payer OTHER, SELFPAY ==
--- NOTE | ~2025-01-27 | XR_ITS ---
EXAMINATION: XR HAND AND WRIST COMPLETE LEFT HISTORY: W19.XXXA - Unspecified fall, initial encounter COMPARISON: There are no prior studies available for comparison. FINDINGS: Three views of the left hand are submitted. Osseous mineralization is normal. There is a minimally displaced oblique fracture of the 4th metacarpal shaft. No additional fracture is seen. There is no dislocation. The joint spaces are preserved. The soft tissues are unremarkable. XR/XR hand wrist LT IMPRESSION: Minimally displaced oblique fracture of the 4th metacarpal shaft. Electronically signed by: Genaro Snowden MD 01/27/2025 11:33 AM EDT
== END 2025-01-27 10:39 | disposition home or self-care (01) ==
LOC: HO.HMGCX 10:38
PROVIDERS: PCP Physician Assistant; Visit Provider Nurse Practitioner Family
DX: S62.325A Displaced fracture of shaft of fourth metacarpal bone, left hand, initial encounter for closed fracture (principal); M79.642 Pain in left hand; M25.532 Pain in left wrist; G89.11 Acute pain due to trauma
CPT/HCPCS: 73110; 73130; 99212

== ENCOUNTER → 2025-01-27 11:17 | Outpatient (BNV) | payer OTHER, SELFPAY | PROVIDERS: PCP Physician Assistant; Visit Provider Radiology Diagnostic Radiology | DX: M79.642 Pain in left hand (principal); W19.XXXA Unspecified fall, initial encounter | CPT/HCPCS: 73110; 73130 ==

== ENCOUNTER 2025-02-03 09:31 | Outpatient (REF) | payer OTHER, SELFPAY ==
--- NOTE | ~2025-02-03 | XR_ITS ---
EXAMINATION: XR HAND 3 OR MORE VIEWS LEFT HISTORY: M79.642 - Pain in left hand COMPARISON: Comparison is made with the prior examination dated 01/27/2025. FINDINGS: Four views of the left hand are submitted. Osseous mineralization is normal. Again seen is a minimally displaced oblique fracture of the 4th metacarpal. The fracture line remains visible. No significant callus is identified. The joint spaces are preserved. The soft tissues are unremarkable. XR/XR hand LT min 3V IMPRESSION: Minimally displaced oblique fracture of the 4th metacarpal without change. Electronically signed by: Genaro Snowden MD 02/03/2025 11:12 AM EDT
== END 2025-02-03 09:32 | disposition home or self-care (01) ==
LOC: HO.HOSX 09:31
PROVIDERS: PCP Physician Assistant
DX: M79.642 Pain in left hand (principal); S62.309A Unspecified fracture of unspecified metacarpal bone, initial encounter for closed fracture
CPT/HCPCS: 73130; 99202

== ENCOUNTER 2025-02-03 09:31 | Outpatient (AMB) | payer OTHER, SELFPAY ==
[2025-02-03 09:35] VITALS: BMI 26.2
--- NOTE | 2025-02-03 09:35 | MHC.OFFVIS ---
Vital Signs 02/03/25 09:35 Height 5 ft 3 in Weight 148 lb BMI 26.2 Intake Visit Reasons: FC- Left of 4th metacarpal fx DOI: 01/27/25 Intake Note: Luzmaria is a 39 year old left hand dominant female who presents today for a new patient visit for evaluation of her fracture of the left fourth metacarpal bone s/p fall DOI: 01/27/25. Patient reports she tripped over a dog causing her to fall. She was seen at [facility] walk in clinic where x-rays were taken and was placed in a splint. Currently she presents with a tingling sensation on her RF that present on Sunday. States her pain has been very tolerable however her pain increases with certain motions. Allergies No Known Allergies Allergy (Verified 02/03/25 09:49) HPI HPI FC- Left of 4th metacarpal fx DOI: 01/27/25: Details: Luzmaria is a 39 year old left hand dominant female who presents today for a new patient visit for evaluation of her fracture of the left fourth metacarpal bone s/p fall DOI: 01/27/25. Patient reports she tripped over a dog causing her to fall. She was seen at [facility] walk in clinic where x-rays were taken and was placed in a splint. Currently she presents with a tingling sensation on her RF that present on Sunday. States her pain has been very tolerable however her pain increases with certain motions. [facility] Medical History Anxiety and depression Surgical History H/O LEEP No pertinent past surgical history Family History Father Prostate cancer Mother Lung cancer Brother In good health HTN (hypertension) Cervical disc disease Sister In good health Cervical disc disease Social History (Updated 02/03/25 @ 09:49 by CONCEPCION Santamaria) Housing: House Alcohol intake: never Patient Tobacco Use Status: Never used Tobacco e-Cigarette/Vaping Use: Never Used Substance Use Type: Marijuana service: No Current occupational status: disabled Current occupation: left hand dominant Gender identity: Female Cognitive needs: No Hearing needs: No Vision needs: No Female Reproductive History Menstrual Age of Menarche: 12 Review of Systems Const All systems reviewed & are unremarkable except as noted in HPI and below Physical Exam Vital Signs: BMI result Body Mass Index 26.2 Extrem Other: Patient is alert, oriented, and in no acute distress. Neuro: Normal sensation of the tips of all digits of the left hand at this time Vascular: Cap refill brisk Pain: Tenderness to palpation of the level of the left 4th metacarpal shaft Minimal discomfort with range of motion of the left hand ROM: With encouragement, patient is able to make a closed fist No rotational deformity Skin: No lacerations or abrasions. General: Ecchymosis noted of dorsal and volar hand No erythema, or evidence of infection. Psych: Appears grossly normal Affect normal Attitude cooperative Office Procedures AMB Fracture Care Fracture Billing Code: Fracture Billing Code Casting/Splints 35277-Nqgt/Wrist Cast Application Procedure code (CPT) selection complete Results Reviewed Results Reviewed: X-rays obtained in the office today and independently reviewed by me, Kevon Mcadams PA-C, demonstrate displaced fracture of left 4th metacarpal shaft. Assessment & Plan Assessment & Plan (1) Fracture of metacarpal of left hand, closed: Code(s): S62.309A - Unspecified fracture of unspecified metacarpal bone, initial encounter for closed fracture Category: Medical Qualifiers: Encounter type: initial encounter Metacarpal bone: fourth Metacarpal location: unspecified portion of metacarpal Plan 1. L fourth MC shaft fracture DOI 01/27/25 Patient is eeducated about this injury Patient is educated about the typical recovery course Patient placed in short arm cast and ramana tape Patient educated about proper cast care and precautions Follow up in 3 weeks with repeat XR, sooner with any acute concerns Orders: Orders XR hand LT min 3V Today M79.642 - Pain in left hand Coding Level of Care Code New Pt Level 3 (02315) Diagnoses Fracture of metacarpal of left hand, closed S62.309A Encounter type: initial encounter Metacarpal bone: fourth Metacarpal location: unspecified portion of metacarpal CPT Codes Fracture Care - Fracture Billing Code: Fracture Billing Code ([id number]) Casting - CPT: 75139-Oowz/Wrist Cast Application ([id number])
== END 2025-02-03 10:29 | disposition home or self-care (01) ==
LOC: HO.HOS 09:31
PROVIDERS: PCP Physician Assistant
DX: S62.305A Unspecified fracture of fourth metacarpal bone, left hand, initial encounter for closed fracture (principal); W01.0XXA Fall on same level from slipping, tripping and stumbling without subsequent striking against object, initial encounter
CPT/HCPCS: 26600; 99203

== ENCOUNTER → 2025-02-03 09:54 | Outpatient (BNV) | payer OTHER, SELFPAY | PROVIDERS: PCP Physician Assistant; Visit Provider Radiology Diagnostic Radiology | DX: M79.642 Pain in left hand (principal) | CPT/HCPCS: 73130 ==

== ENCOUNTER 2025-02-24 07:38 | Outpatient (AMB) | payer OTHER, SELFPAY ==
[2025-02-24 07:41] VITALS: BMI 26.2
--- NOTE | 2025-02-24 07:41 | A.OFFVIS_ITS ---
Vital Signs 02/24/25 07:41 Height 5 ft 3 in Weight 148 lb BMI 26.2 Intake Visit Reasons: OV-Left of 4th metacarpal fx DOI: 01/27/25-w/xray Intake Note: Luzmaria is a 39 year old left hand dominant female who presents today for a follow up visit for her fracture of metacarpal of left hand s/p fall DOI: 01/27/25. On 02/03/25 patient placed in short arm cast and ramana tape. Cast has been removed in office today to update x-rays. Patient reports that she is doing very well, she has some minor pain with various movements. Denies numbness and tingling. Allergies No Known Allergies Allergy (Verified 02/24/25 07:41) HPI HPI OV-Left of 4th metacarpal fx DOI: 01/27/25-w/xray: Details: Luzmaria is a 39 year old left hand dominant female who presents today for a follow up visit for her fracture of metacarpal of left hand s/p fall DOI: 11/22. On 02/03/25 patient placed in short arm cast and rmaana tape. Cast has been removed in office today to update x-rays. Patient reports that she is doing very well, she has some minor pain with various movements. Denies numbness and tingling. [facility] Medical History Anxiety and depression Surgical History H/O LEEP No pertinent past surgical history Family History Father Prostate cancer Mother Lung cancer Brother In good health HTN (hypertension) Cervical disc disease Sister In good health Cervical disc disease Social History (Updated 02/03/25 @ 09:49 by CONCEPCION Santamaria) Housing: House Alcohol intake: never Patient Tobacco Use Status: Never used Tobacco e-Cigarette/Vaping Use: Never Used Substance Use Type: Marijuana service: No Current occupational status: disabled Current occupation: left hand dominant Gender identity: Female Cognitive needs: No Hearing needs: No Vision needs: No Female Reproductive History Menstrual Age of Menarche: 12 Review of Systems Const All systems reviewed & are unremarkable except as noted in HPI and below Physical Exam Vital Signs: BMI result Body Mass Index 26.2 Extrem Other: Patient is alert, oriented, and in no acute distress. Neuro: Normal sensation of the tips of all digits of the left hand at this time Vascular: Cap refill brisk Pain: No Tenderness to palpation of the level of the left 4th metacarpal shaft Minimal discomfort with range of motion of the left hand ROM: With encouragement, patient is able to make a closed fist No rotational deformity Skin: No lacerations or abrasions. General: Ecchymosis noted of dorsal and volar hand No erythema, or evidence of infection. Psych: Appears grossly normal Affect normal Attitude cooperative Office Procedures Casting/Splints 14593-Dsqm/Wrist Cast Application Procedure code (CPT) selection complete Results Reviewed Results Reviewed: X-rays obtained in the office today and independently reviewed by me, Kevon Mcadams PA-C, demonstrate displaced fracture of left 4th metacarpal shaft. Assessment & Plan Assessment & Plan (1) Fracture of metacarpal of left hand, closed: Code(s): S62.309A - Unspecified fracture of unspecified metacarpal bone, initial encounter for closed fracture Category: Medical Qualifiers: Encounter type: initial encounter Metacarpal bone: fourth Metacarpal location: unspecified portion of metacarpal Plan 1. L fourth MC shaft fracture DOI 01/27/25 Patient is eeducated about this injury Patient is educated about the typical recovery course Patient placed in short arm cast and ramana tape Patient educated about proper cast care and precautions Follow up in 7-10 weeks with repeat XR, sooner with any acute concerns Orders: Orders XR hand LT min 3V Today M79.642 - Pain in left hand Coding Level of Care Code Global (84371) Diagnoses Fracture of metacarpal of left hand, closed S62.309A Encounter type: initial encounter Metacarpal bone: fourth Metacarpal location: unspecified portion of metacarpal CPT Codes Casting - CPT: 28655-Zimm/Wrist Cast Application ([id number])
--- OUTSIDE RECORDS SUMMARY | 2025-02-24 07:41 | XMS_ITS | Encounter Summary ---
Author Organization [facility] Address [address] [place] [address] Care Team Providers Care Truck Driver Rubbish Collector Name Role Phone Charmaine Naidu DO Primary Care Pro vider Unavailable Sabrina Maria MD Primary Care Provider Un available Encounter Details Date Type Department Care Team Description 08/11/2016 Release of Information Medical Records [address] [place] [id number] Abstract, Provider Social History Tobacco Use Types [...] on filedocumented in this encounter Care Teams Truck Driver Rubbish Collector Relationship Specialty Start Date End Date Charmaine Naidu DO PCP - General Internal Medicine 12/25/13 02/07/17 Sabrina Maria MD PCP - General Internal Medicine 02/08/17 documented as of this encounter
--- OUTSIDE RECORDS SUMMARY | 2025-02-24 07:41 | XMS_ITS | Encounter Summary ---
Author Organization [facility] Address [address] [place] [address] Care Team Providers Care Senior Media Director Name Role Phone Charmaine Naidu DO Primary Care Pro vider Unavailable Sabrina Maria MD Primary Care Provider Un available Encounter Details Date Type Department Care Team Description 03/12/2015 [facility] Medical Records [address] [place] [address] Social History Tobacco Use Types Packs/Day Years [...] on filedocumented in this encounter Care Teams Senior Media Director Relationship Specialty Start Date End Date Charmaine Naidu DO PCP - General Internal Medicine 12/25/13 02/07/17 Sabrina Maria MD PCP - General Internal Medicine 02/08/17 documented as of this encounter
--- OUTSIDE RECORDS SUMMARY | 2025-02-24 07:41 | XMS_ITS | Encounter Summary ---
Author Organization [facility] Address [address] [place] [address] Care Team Providers Care Canal Equipment Mechanic Name Role Phone Sabrina Maria MD Primary Care Provider Un available Encounter Details Date Type Department Care Team Description 02/18/2017 Release of Information Medical Records [address] [place] [id number] Abstract, Provider Social History Tobacco Use Types [...] on filedocumented in this encounter Care Teams Canal Equipment Mechanic Relationship Specialty Start Date End Date Sabrina Maria MD PCP - General Internal Medicine 02/08/17 documented as of this encounter
--- OUTSIDE RECORDS SUMMARY | 2025-02-24 07:41 | XMS_ITS | Encounter Summary ---
Author Organization [facility] Address [address] [place] [address] Care Team Providers Care Photo Printer Name Role Phone Charmaine Naidu DO Primary Care Pro vider Unavailable Sabrina Maria MD Primary Care Provider Un available Reason for Visit * Reason Onset Date Comments REFERRAL 02/12/2014 Encounter Details Date Type Department Care Team Description 02/12/2014 Telephone [facility] [address] Jose Del Rosario, OD REFERRAL Social History Tobacco Use Types Packs/Day Years Used Date Smoking Tobacco: Never Smokeless Tobacco: Never Alcohol Use Standard Drinks/Week Comments Yes 0 (1 standard drink = 0.6 oz pur e alcohol) occ Sex Assigned at Date Recorded Not on file documented as of this encounter Miscellaneous Notes * Telephone Encounter - Deyanira Bowre - 02/12/2014 11:02 AM EDT This is [...] on filedocumented in this encounter Care Teams Photo Printer Relationship Specialty Start Date End Date Charmaine Naidu DO PCP - General Internal Medicine 12/25/13 02/07/17 Sabrina Maria MD PCP - General Internal Medicine 02/08/17 documented as of this encounter
--- OUTSIDE RECORDS SUMMARY | 2025-02-24 07:41 | XMS_ITS | Encounter Summary ---
Author Organization [facility] Address [address] [place] [address] Care Team Providers Care Hydraulic Chair Assembler Name Role Phone Charmaine Naidu DO Primary Care Pro vider Unavailable Sabrina Maria MD Primary Care Provider Un available Encounter Details Date Type Department Care Team Description 01/25/2014 Orders Only Adult Medicine [address] [address] Charmaine Naidu DO Vitamin d deficiency; B12 deficiency Social History Tobacco Use Types Packs/Day Years Used Date Smoking Tobacco: Never Smokeless Tobacco: Never Alcohol Use Standard Drinks/Week Comments Yes 0 (1 standard drink = 0.6 oz pur e alcohol) occ Sex Assigned at Date Recorded Not on file documented as of this encounter Plan of Treatment Not on file documented as of this encounter Visit Diagnoses Diagnosis Vitamin D deficiency Unspecified vitamin D deficiency B12 deficiency Other B-complex deficiencies documented in this encounter Care Teams Hydraulic Chair Assembler Relationship Specialty Start Date End Date Charmaine Naidu DO PCP - General Internal Medicine 12/25/13 02/07/17 Sabrina Maria MD PCP - General Internal Medicine 02/08/17 documented as of this encounter
== END 2025-02-24 08:56 | disposition home or self-care (01) ==
LOC: HO.HOS 07:39
PROVIDERS: PCP Physician Assistant
DX: S62.305B Unspecified fracture of fourth metacarpal bone, left hand, initial encounter for open fracture (principal)
CPT/HCPCS: 29085; 99024

== ENCOUNTER 2025-02-24 07:38 | Outpatient (REF) | payer OTHER, SELFPAY ==
--- NOTE | ~2025-02-24 | XR_ITS ---
EXAMINATION: XR HAND 3 OR MORE VIEWS LEFT HISTORY: M79.642 - Pain in left hand COMPARISON: Comparison is made with the prior examination dated 02/03/2025. FINDINGS: Three views of the left hand are submitted. Osseous mineralization is normal. Again seen is an oblique fracture of the 4th metacarpal shaft. The fracture line remains visible. No callus formation is seen. The joint spaces are preserved. The soft tissues are unremarkable. XR/XR hand LT min 3V IMPRESSION: Oblique fracture of the 4th metacarpal shaft without change. Electronically signed by: Genaro Snowden MD 02/25/2025 02:48 PM EDT
== END 2025-02-24 07:39 | disposition home or self-care (01) ==
LOC: HO.HOSX 07:38
PROVIDERS: PCP Physician Assistant
DX: M79.642 Pain in left hand (principal); S62.325D Displaced fracture of shaft of fourth metacarpal bone, left hand, subsequent encounter for fracture with routine healing
CPT/HCPCS: 29085; 73130; 99212

== ENCOUNTER → 2025-02-24 08:07 | Outpatient (BNV) | payer OTHER, SELFPAY | PROVIDERS: PCP Physician Assistant; Visit Provider Radiology Diagnostic Radiology | DX: S62.324A Displaced fracture of shaft of fourth metacarpal bone, right hand, initial encounter for closed fracture (principal) | CPT/HCPCS: 73130 ==

== ENCOUNTER 2025-03-17 10:02 | Outpatient (REF) | payer OTHER, SELFPAY ==
--- OUTSIDE RECORDS SUMMARY | 2025-03-18 11:27 | XMS_ITS | Encounter Summary ---
Author Organization [facility] Address [address] [place] [address] Care Team Providers Care Client Care Coordinator Name Role Phone Sabrina Maria MD Primary Care Provider Un available Encounter Details Date Type Department Care Team Description 02/18/2017 Release of Information Medical Records [address] [place] [id number] Abstract, Provider Social History Tobacco Use Types [...] on filedocumented in this encounter Care Teams Client Care Coordinator Relationship Specialty Start Date End Date Sabrina Maria MD PCP - General Internal Medicine 02/08/17 documented as of this encounter
--- OUTSIDE RECORDS SUMMARY | 2025-03-18 11:27 | XMS_ITS | Encounter Summary ---
Author Organization [facility] Address [address] [place] [address] Care Team Providers Care General Office Dispatcher Name Role Phone Charmaine Naidu DO Primary Care Pro vider Unavailable Sabrina Maria MD Primary Care Provider Un available Encounter Details Date Type Department Care Team Description 03/12/2015 [facility] Medical Records [address] [place] [address] Social History Tobacco Use Types Packs/Day Years [...] on filedocumented in this encounter Care Teams General Office Dispatcher Relationship Specialty Start Date End Date Charmaine Naidu DO PCP - General Internal Medicine 12/25/13 02/07/17 Sabrina Maria MD PCP - General Internal Medicine 02/08/17 documented as of this encounter
--- OUTSIDE RECORDS SUMMARY | 2025-03-18 11:27 | XMS_ITS | Encounter Summary ---
Author Organization [facility] Address [address] [place] [address] Care Team Providers Care Licensed Mortician Name Role Phone Charmaine Naidu DO Primary Care Pro vider Unavailable Sabrina Maria MD Primary Care Provider Un available Reason for Visit * Reason Onset Date Comments REFERRAL 02/12/2014 Encounter Details Date Type Department Care Team Description 02/12/2014 Telephone Eye Services-[address] [address] Jose Del Rosario, OD REFERRAL Social History [...] on filedocumented in this encounter Care Teams Licensed Mortician Relationship Specialty Start Date End Date Charmaine Naidu DO PCP - General Internal Medicine 12/25/13 02/07/17 Sabrina Maria MD PCP - General Internal Medicine 02/08/17 documented as of this encounter
--- OUTSIDE RECORDS SUMMARY | 2025-03-18 11:27 | XMS_ITS | Encounter Summary ---
Author Organization [facility] Address [address] [place] [address] Care Team Providers Care Farmworker Grain Name Role Phone Charmaine Naidu DO Primary Care Pro vider Unavailable Sabrina Maria MD Primary Care Provider Un available Encounter Details Date Type Department Care Team Description 03/19/2014 Telephone [facility] Services-[address] [address] Jose Del Rosario, DOMINIQUE Social History Tobacco Use Types Packs/Day Years Used Date Smoking Tobacco: Never Smokeless Tobacco: Never Alcohol Use Standard Drinks/Week Comments Yes 0 (1 standard drink = 0.6 oz pur e alcohol) occ Sex Assigned at Date Recorded Not on file documented as of this encounter Miscellaneous Notes * Telephone Encounter - Jose Del Rosario OD - 03/19/2014 7:12 AM EDT Please call [facility] and make sure the pt made and went the appt on 04/15/14 and document documented in this encounter Plan of Treatment Not on file documented as of this encounter Visit Diagnoses Not on filedocumented in this encounter Care Teams Farmworker Grain Relationship Specialty Start Date End Date Charmaine Naidu DO PCP - General Internal Medicine 12/25/13 02/07/17 Sabrina Maria MD PCP - General Internal Medicine 02/08/17 documented as of this encounter
--- OUTSIDE RECORDS SUMMARY | 2025-03-18 11:27 | XMS_ITS | Encounter Summary ---
Author Organization [facility] Address [address] [place] [address] Care Team Providers Care Charge Out Clerk Name Role Phone Charmaine Naidu DO Primary Care Pro vider Unavailable Sabrina Maria MD Primary Care Provider Un available Encounter Details Date Type Department Care Team Description 01/22/2014 Orders Only Adult Medicine [address] [address] Charmaine Naidu DO Pyuria (Primary Dx) Social [...] EDT 01/22/2014 2:40 PM EDT Narrative [facility] - 01/23/2014 2:00 PM EDT No growth Charmaine Lopez DO LAB [facility] documented in this encounter Visit Diagnoses Diagnosis Pyuria- Primary Other nonspecific finding on examination of urine Pyuria Other nonspecific finding on examination of urine documented in this encounter Care Teams Charge Out Clerk Relationship Specialty Start Date End Date Charmaine Naidu DO PCP - General Internal Medicine 12/25/13 02/07/17 Sabrina Maria MD PCP - General Internal Medicine 02/08/17 documented as of this encounter
== END 2025-03-17 10:03 | disposition home or self-care (01) ==
LOC: HO.HOSX 10:02
DX: Z13.89 Encounter for screening for other disorder (principal)

== ENCOUNTER 2025-03-20 08:36 | Outpatient (REF) | payer OTHER, SELFPAY ==
--- NOTE | ~2025-03-20 | XR_ITS ---
CLINICAL HISTORY: M79.642 - Pain in left hand --- Additional Notes or Special Instructions: Fredis nicolas Exam: AP, lateral, and oblique views of the left hand. Comparison: February 24, 2025. Findings: Unchanged alignment of the obliquely oriented fracture involving the proximal to mid diaphysis of the 4th metacarpal. There is developing callus formation of the fracture line without complete solid bony ankylosis at this time. No new fractures are identified. Metacarpophalangeal joints are anatomically aligned. Impression: Unchanged alignment of the healing 4th metacarpal fracture. This document has been electronically signed by: Jonathan Barfield MD on 03/21/2025 10:02:32
== END 2025-03-20 08:37 | disposition home or self-care (01) ==
LOC: HO.HOSX 08:36
PROVIDERS: PCP Physician Assistant
DX: M79.642 Pain in left hand (principal); S62.305A Unspecified fracture of fourth metacarpal bone, left hand, initial encounter for closed fracture
CPT/HCPCS: 73130; 99212

== ENCOUNTER 2025-03-20 08:36 | Outpatient (AMB) | payer OTHER, SELFPAY ==
--- NOTE | 2025-03-20 09:00 | A.OFFVIS_ITS ---
Vital Signs 03/20/25 09:01 Height 5 ft 3 in Weight 148 lb BMI 26.2 Intake Visit Reasons: OV-Left of 4th metacarpal fx DOI: 01/27/25-w/xray Intake Note: Luzmaria is a 39 year old left hand dominant female who presents today for a follow up visit of her left 4th Metacarpal fracture 01/27/25. At her last visit she was placed in a short arm cast and instructed to ramana tape. Cast off and xrays updated today in office. Allergies No Known Allergies Allergy (Verified 03/20/25 09:01) HPI HPI OV-Left of 4th metacarpal fx DOI: 01/27/25-w/xray: Details: Luzmaria is a 39 year old left hand dominant female who presents today for a follow up visit of her left 4th Metacarpal fracture 01/27/25. At her last visit she was placed in a short arm cast and instructed to ramana tape. Denies ongoing pain at the fracture site. Range of motion full and intact. Cast off and xrays updated today in office. [facility] Medical History Anxiety and depression Surgical History H/O LEEP No pertinent past surgical history Family History Father Prostate cancer Mother Lung cancer Brother In good health HTN (hypertension) Cervical disc disease Sister In good health Cervical disc disease Social History (Updated 02/03/25 @ 09:49 by CONCEPCION Santamaria) Housing: House Alcohol intake: never Patient Tobacco Use Status: Never used Tobacco e-Cigarette/Vaping Use: Never Used Substance Use Type: Marijuana service: No Current occupational status: disabled Current occupation: left hand dominant Gender identity: Female Cognitive needs: No Hearing needs: No Vision needs: No Female Reproductive History Menstrual Age of Menarche: 12 Review of Systems Const All systems reviewed & are unremarkable except as noted in HPI and below Physical Exam Vital Signs: BMI result Body Mass Index 26.2 Extrem Other: Patient is alert, oriented, and in no acute distress. Neuro: Normal sensation of the tips of all digits of the left hand at this time Vascular: Cap refill brisk Pain: No Tenderness to palpation of the level of the left 4th metacarpal shaft No discomfort with range of motion of the left hand ROM: Patient is able to make a closed fist No rotational deformity Skin: No lacerations or abrasions. General: Ecchymosis noted of dorsal and volar hand No erythema, or evidence of infection. Psych: Appears grossly normal Affect normal Attitude cooperative Results Reviewed Results Reviewed: X-rays obtained in the office today and independently reviewed by me, Kevon Mcadams PA-C, demonstrate minimally displaced fracture of left 4th metacarpal shaft with evidence of good interval bony healing. Assessment & Plan Assessment & Plan (1) Fracture of metacarpal of left hand, closed: Code(s): S62.309A - Unspecified fracture of unspecified metacarpal bone, initial encounter for closed fracture Category: Medical Qualifiers: Encounter type: initial encounter Metacarpal bone: fourth Metacarpal location: unspecified portion of metacarpal Plan 1. L fourth MC shaft fracture DOI 01/27/25 Patient is eeducated about this injury Patient is educated about the typical recovery course Patient is adivsed she should continue to ramana tape the fingers for the next 3- 4 weeks Patient is advised that she can increase the weight limit to 3-4 lb in her left hand at this time Follow up in 3 weeks for reassessment, sooner with any acute concerns Orders: Orders XR hand LT min 3V Today M79.642 - Pain in left hand Coding Level of Care Code Global (33004) Diagnoses Fracture of metacarpal of left hand, closed S62.309A Encounter type: initial encounter Metacarpal bone: fourth Metacarpal location: unspecified portion of metacarpal
[2025-03-20 09:01] VITALS: BMI 26.2
== END 2025-03-20 09:19 | disposition home or self-care (01) ==
LOC: HO.HOS 08:37
PROVIDERS: PCP Physician Assistant
DX: S62.309A Unspecified fracture of unspecified metacarpal bone, initial encounter for closed fracture (principal)
CPT/HCPCS: 99024

== ENCOUNTER → 2025-03-20 08:47 | Outpatient (BNV) | payer OTHER, SELFPAY | PROVIDERS: PCP Physician Assistant; Visit Provider Radiology Diagnostic Radiology | DX: S62.305D Unspecified fracture of fourth metacarpal bone, left hand, subsequent encounter for fracture with routine healing (principal) | CPT/HCPCS: 73130 ==

== ENCOUNTER 2025-04-10 14:49 | Outpatient (AMB) | payer OTHER, SELFPAY ==
--- OUTSIDE RECORDS SUMMARY | 2025-04-10 14:50 | XMS_ITS | Encounter Summary ---
Author Organization [facility] Address [address] [place] [address] Care Team Providers Care Used [employer] Name Role Phone Sabrina Maria MD Primary Care Provider Un available Encounter Details Date Type Department Care Team Description 02/18/2017 Release of Information Medical Records [address] [place] [id number] Abstract, Provider Social History Tobacco Use Types [...] on filedocumented in this encounter Care Teams Used [employer] Relationship Specialty Start Date End Date Sabrina Maria MD PCP - General Internal Medicine 02/08/17 documented as of this encounter
--- NOTE | 2025-04-10 15:22 | MHC.OFFVIS ---
Vital Signs 04/10/25 15:26 Height 5 ft 3 in Weight 145 lb BMI 25.7 Handedness Left Intake Visit Reasons: OV-Left of 4th metacarpal fx DOI: 01/27/25 Intake Note: Nata is a 39 year old left hand dominant female who presents today for a follow up visit for her fracture of metacarpal of left hand, DOI: 01/27/25. Patient reports she has been doing home exercises at home. She says this is causing her pain to diminish and her ROM is improving daily. Allergies No Known Allergies Allergy (Verified 04/10/25 15:26) HPI HPI OV-Left of 4th metacarpal fx DOI: 01/27/25: Details: Nata is a 39 year old left hand dominant female who presents today for a follow up visit for her fracture of metacarpal of left hand, DOI: 01/27/25. Patient reports she has been doing home exercises at home. She says this is causing her pain to diminish and her ROM is improving daily. [facility] Medical History Anxiety and depression Surgical History H/O LEEP No pertinent past surgical history Family History Father Prostate cancer Mother Lung cancer Brother In good health HTN (hypertension) Cervical disc disease Sister In good health Cervical disc disease Social History Housing: House Alcohol intake: never Patient Tobacco Use Status: Never used Tobacco e-Cigarette/Vaping Use: Never Used Substance Use Type: Marijuana service: No Current occupational status: disabled Current occupation: left hand dominant Gender identity: Female Cognitive needs: No Hearing needs: No Vision needs: No Female Reproductive History Menstrual Age of Menarche: 12 Review of Systems Const All systems reviewed & are unremarkable except as noted in HPI and below Physical Exam Vital Signs: BMI result Body Mass Index 25.7 Extrem Other: Patient is alert, oriented, and in no acute distress. Neuro: Normal sensation of the tips of all digits of the left hand at this time Vascular: Cap refill brisk Pain: No Tenderness to palpation of the level of the left 4th metacarpal shaft No discomfort with range of motion of the left hand ROM: Patient is able to make a closed fist No rotational deformity Skin: No lacerations or abrasions. General: Ecchymosis noted of dorsal and volar hand No erythema, or evidence of infection. Psych: Appears grossly normal Affect normal Attitude cooperative Assessment & Plan Assessment & Plan (1) Fracture of metacarpal of left hand, closed: Code(s): S62.309A - Unspecified fracture of unspecified metacarpal bone, initial encounter for closed fracture Category: Medical Qualifiers: Encounter type: initial encounter Metacarpal bone: fourth Metacarpal location: unspecified portion of metacarpal Plan 1. L fourth MC shaft fracture DOI 01/27/25 Patient is eeducated about this injury Patient is educated about the typical recovery course Patient is adivsed she should begin to gradually return back to full normal activity over the next 3-4 weeks Patient is amenable to this plan Follow up as needed with any acute concerns Coding Level of Care Code Global (45847) Diagnoses Fracture of metacarpal of left hand, closed S62.309A Encounter type: initial encounter Metacarpal bone: fourth Metacarpal location: unspecified portion of metacarpal
[2025-04-10 15:26] VITALS: BMI 25.7
== END 2025-04-10 15:35 | disposition home or self-care (01) ==
LOC: HO.HOS 14:49
PROVIDERS: PCP Physician Assistant
DX: S62.309A Unspecified fracture of unspecified metacarpal bone, initial encounter for closed fracture (principal)
CPT/HCPCS: 99024

== ENCOUNTER → 2025-04-10 14:49 | Outpatient (BNVA) | payer OTHER, SELFPAY | PROVIDERS: PCP Physician Assistant | DX: M79.642 Pain in left hand (principal); S62.393A Other fracture of third metacarpal bone, left hand, initial encounter for closed fracture | CPT/HCPCS: 99212 ==